=== PATIENT | male | born 1950 | race Caucasian/White ===

== ENCOUNTER → 2018-09-14 11:26 | Outpatient (BNVA) | payer OTHER, MEDICARE, SELFPAY | PROVIDERS: Visit Provider Physical Therapy Assistant | DX: Z12.11 Encounter for screening for malignant neoplasm of colon (principal) ==

== ENCOUNTER 2018-09-29 08:08 | Day surgery (SDC) | payer MEDICARE, OTHER, SELFPAY ==
--- NOTE | 2018-09-29 06:46 | W.COLOREPORT ---
Date of service: 09/29/18 Time of Service: 09:11 Colonoscopy Report Date of procedure: 09/29/18 Pre-op diagnosis general: Colon Cancer Screening Post-op diagnosis procedure note: same Procedure: Colonoscopy Surgeon: Carmen Song Anesthesia proc note operative: MAC (Margaret Jenkins CRNA / ASA 2) Estimated blood loss (mL): 0 Pathology: none sent Complications: None Disposition: same day Indications: Mr. Gong is a pleasant 68 year old male who had a colonoscopy in 2005 that was normal. He is here today for another colonoscopy. Risks, benefits and complications have been reviewed. Complications include but are not limited to bleeding, pain, perforation, missed small lesion/polyp, sore throat, aspiration and adverse reaction to the medications. Questions were entertained and answered to their satisfaction and they wished to proceed. No guarantees were given or implied. Prep: Miralax/Dulcolax Procedure Start Time: 09:11 Procedure End Time: 09:32 Retraction Time: 10 minutes Findings: Normal colon Procedure Description: After informed consent was obtained the patient was taken to the procedure room and placed in a left decubitous position. Monitors were applied and a time out was done. The patients name, date of , procedure, allergies to medications and metal in their body was reviewed. The patient was then sedated. Once sedated and comfortable a rectal exam was done. External exam was normal. Internal exam revealed a normal sphincter tone and no palpable masses. The prostate felt smooth. The scope was then introduced and retro-flexed. NO internal hemorrhoids were identified. There were some skin tags. The scope was then advanced to the cecum with some difficulty due to tortuousity . The TI and appendiceal orifice were identified. The prep was good. The scope was then slowly retracted over 10 minutes back into the rectum. There were no polyps and no diverticuli. The scope was removed and the patient was woken up and taken back to Same day surgery in stable condition. The patient tolerated the procedure well and there were no immediate complications. Follow up: The patient should have another colonoscopy if they develop changes in bowel habits or other new gastrointestinal complaints.
--- NOTE | 2018-09-29 06:49 | W.PM.DSUDISC ---
Discharge Plan Disposition Patient Disposition: HOME Condition: Good Discharge Details Reason For Visit: colon cancer screening Attending Provider: Carmen Song Primary Care Provider: No,Local Home Meds and New Rx's Prescriptions: Continued atorvastatin [Lipitor] 40 MG tablet 40 mg PO DAILY RF: 0 Discharge Instructions Instructions: Colonoscopy (DC) Additional Instructions: Findings: Normal colonoscopy Follow up: as needed Please call if you develop: fevers >101.5 Nausea or Vomiting Abdominal pain that is not transient DAY SURGERY UNIT POST COLONOSCOPY INSTRUCTIONS 1. Because there will be medication in your system for the next 24 hours, you may feel a little sleepy. Your coordination will be affected. Therefore: a. Do not drive or operate dangerous equipment for 24 hours. b. Do not drink alcohol beverages for 24 hours (not even beer). c. Plan to go home and rest for the day. 2. Generally there are no restrictions on your activity after a day or so has gone by, but you may feel a bit fatigued for a few days. 3 After you arrive home you may have a light meal and return to a normal diet as you can tolerate it without feeling sick to your stomach. 4. After surgery, you may feel pain or discomfort. This should be only transient, but if it persists please contact your doctor. 5. If there are any questions regarding the findings of your procedure, please feel free to contact your doctor. 6. If you are unable to contact your doctor with a problem, contact the hospital at [phone]. 7. Continue all your regular medications unless directed otherwise. I understand the above instructions and have no questions. Signature of Patient or Responsible Adult Escort Date/Time Name of Responsible Adult Escort Signature of Nurse Date/Time Activity:: Activity as Tolerated Diet:: As Tolerated Discharge Orders Discharge Orders: Discharge Order (Routine); Ordered 09/29/18 Ordered By: Carmen Song DS: Diagnosis Discharge Diagnosis (1) S/P colonoscopy: Status: Acute
[2018-09-29 08:24] VITALS: BP 148/91; PULSE 70; RESP 18; TEMP 36.5; O2SAT 97
[2018-09-29] MEDS: Lactated Ringers 1,000 ML 80 ML IV (08:34)
[2018-09-29 10:05] VITALS: BP 116/69; PULSE 72; RESP 16; TEMP 35.8; O2SAT 96
== END 2018-09-29 10:40 | disposition home or self-care (01) ==
PROVIDERS: Visit Provider Surgery
PROC: 0DJD8ZZ Inspection of Lower Intestinal Tract, Via Natural or Artificial Opening Endoscopic (ICD-10-PCS; CPT 45378; principal; 2018-09-29 09:00)
DX: Z12.11 Encounter for screening for malignant neoplasm of colon (principal); K63.89 Other specified diseases of intestine
CPT/HCPCS: G0121

== ENCOUNTER 2020-03-15 03:19 | Outpatient (CLI) | payer OTHER, SELFPAY ==
--- NOTE | 2020-03-15 | DI.US_ITS ---
EXAM: US RENAL CLINICAL HISTORY: [id number],INCIDENTAL FINDING OF HYDRONEPHROSIS VS PARAPELVIC CYSTS TECHNIQUE: Ultrasound performed using standard protocol. COMPARISON: No exams were available for comparison FINDINGS: The kidneys are normal in size and shape. No renal mass identified. There appears to be mild to mod erate hydronephrosis of the right kidney. There are 2 parapelvic cysts of the left kidney without hy dronephrosis. Ureteral jets were identified bilaterally. Urinary bladder is grossly unremarkable with pre and post void volumes 397 cc and 11 cc respectively. IMPRESSION: Mild to moderate right hydronephrosis. No specific etiology identified. CT urogram recommended for further assessment. DATA REPOSITORY:
== END 2020-03-15 03:39 ==
PROVIDERS: PCP Nurse Practitioner Primary Care; Visit Provider Nurse Practitioner Primary Care
DX: N13.30 Unspecified hydronephrosis (principal)
CPT/HCPCS: 76770

== ENCOUNTER 2020-03-24 02:31 | Outpatient (CLI) | payer OTHER, SELFPAY ==
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
[2020-03-24 09:20] LABS: BUN 18 mg/dL (7-18); CREATININE 0.79 mg/dL (0.70-1.30)
[2020-03-24] MEDS: Omnipaque 350 MG/ML 100 ML BTL IJ (11:38)
[2020-03-24] MEDS: Normal Saline - Diluent 50 ML VIAL 100 ML IV (11:56)
== END 2020-03-24 02:51 ==
PROVIDERS: PCP Nurse Practitioner Primary Care; Visit Provider Nurse Practitioner Primary Care
DX: N20.0 Calculus of kidney (principal); N28.1 Cyst of kidney, acquired
CPT/HCPCS: 84520; 74178; 82565; J3490

== ENCOUNTER 2020-04-24 16:45 | Emergency (ER) | payer OTHER, SELFPAY ==
[2020-04-24 16:47] VITALS: BP 171/91; PULSE 76; RESP 16; TEMP 35.4; O2SAT 95
--- NOTE | 2020-04-24 16:50 | ED.GENADUL_ITS ---
Discharge Plan Disposition Patient Disposition: HOME Condition: Good Discharge Details Clinical Impression: Ankle sprain Primary Care Provider: Heidi Wells ED Provider: Shandra Ervin Home Meds and New Rx's Prescriptions: Continued atorvastatin [Lipitor] 40 MG tablet 40 mg PO DAILY RF: 0 Discharge Instructions Instructions: Ankle Sprain (ED) Additional Instructions: Encourage rest, ice, elevation. Tylenol and/or ibuprofen as needed for discomfort. You may continue with the brace while pain persists. If pain is not completely resolved in 2 weeks please follow-up with primary care. When he follow-up with your primary care, please discuss your blood pressure as this was noted to be high today. If he develop new or worsening symptoms please seek care urgently once again Referrals: Heidi Wells [Primary Care Provider] - Discharge Data Discharge Date/Time-TO BE ENTERED AT DEPARTURE: 04/24/20 17:45 Medical Decision Making Patient is a pleasant 70-year-old male presenting today with chief complaint of right ankle pain. He reports that he was working on a 6 foot stepladder 3 days ago, indicates being approximately intermediate up when the ladder began to tip. States that he stepped down with his right foot. Denies other injury at the time of the incident. Not strike his head, was conscious. Denies any headache, neck pain, back pain, no nausea or vomiting. States he has been ambulating well without antalgic gait. However, he states he does have medial pain with dorsiflexion of the foot. Indicates the medial aspect of the ankle as area of discomfort. His children saw the ecchymosis that is now wrapping around the heel aspect of the foot and were concerned for potential fracture. On exam, patient is resting comfortably. He Has no pain in the knee or over the proximal fibula. His Achilles tendon is intact. He has no heel pain with lateral squeeze or palpation directly at the base of the heel. He has great range of motion. He does have tenderness over the medial malleolus. Ecchymosis appears to have fallen inferior to this aspect. He does not have pain over the ecchymosis itself. No pain laterally. Normal foot exam with no pain over the proximal fifth metatarsal. Intact capillary refill, 2+ distal pulses, sensation intact. Will obtain x-rays to evaluate medial malleolus FINDINGS: Bones/joints: Normal. Soft tissues: Normal. IMPRESSION: No acute findings. Discussed these findings with the patient. Will splint to help with discomfort. Encouraged RICE. Advised f/u with PCP in 2 weeks if not improving. Discussed return precautions. All questions and concerns were addressed, she is in [facility] with this plan. HPI General Mode of arrival: ambulatory . Date/Time Provider Initiated Documentation: 04/24/20 16:50 . Limitations to Documentation: no limitations . Information obtained by: patient and RN notes reviewed . History of Present Illness 70 year old M presents to the emergency department with the chief complaint of right ankle pain and ecchymosis, described as mild (denies any pain at this time), Quality is described as aching, and is localized to the right and lower extremity. Patient reports no radiation. Patient started experiencing this day(s) (3) and it has been now resolved. Immobilization improves symptom(s), Other factors that worsen symptoms (dorsiflexion of ankle) . Patient notes no other symptoms.. Patient did receive the following treatments prior to arrival, none Related Data Home Medications Medication Instructions Recorded Confirmed atorvastatin [Lipitor] 40 mg PO DAILY 08/31/17 04/25/20 Allergies Allergy/AdvReac Type Severity Reaction Status Date / Time No Known Allergies Allergy Unverified 04/25/20 09:40 Review of Systems Constitutional Constitutional: Reports as per HPI, Denies chills, Denies fever(s), Denies headache(s) and Denies weakness ENT Ears, Nose, Mouth, and Throat: Denies headache(s) Cardiovascular Cardiovascular: Reports as per HPI Respiratory Respiratory: Reports as per HPI and Denies cough Musculoskeletal Musculoskeletal: Reports as per HPI and Denies tingling Integumentary/Breasts Skin/Breast: Reports as per HPI, Denies rash and Denies wounds Neurologic Neurologic: Reports as per HPI, Denies headache(s), Denies tingling, Denies paresthesias and Denies weakness [facility] Medical History Carpal tunnel syndrome Degenerative joint disease Hyperlipidemia Surgical History H/O colonoscopy 05/07/16 - Dr Allen, normal, internal hemorrhoids, repeat 10 years S/P colonoscopy (~09/29/18) Social History Smoking/Tobacco Use Status: Former Tobacco Use Alcohol Intake: never Drug use: Never Substance use type: does not use Do you feel safe in your relationship?: Yes Exam Const General: cooperative, healthy appearing, comfortable, no acute distress, well d eveloped and well groomed Nutritional Appearance: average body habitus and well nourished Orientation: alert and awake Resp Effort & Inspection: normal respiratory effort, able to speak in complete sentences and no respiratory distress Cardio Rate: regular rate Rhythm: regular rhythm Skin General skin exam: ecchymosis (medial and lateral around heel) Neuro General: patient alert and patient awake Cognition: normal cognition Speech: speech normal Gait: normal gait Motor: muscle tone normal throughout Sensory Exam: no sensory deficits noted Extrem Right lower extremity: normal to inspection (ecchymosis noted, otherwise normal), full ROM, normal capillary refill, no joint enlargement, knee (normal, no pain over fibular head/neck), lower leg Details: normal to inspection and no edema; no erythema, no tenderness, no localized swelling, no palpable cords and no ecchymosis, ankle Details: tenderness Location: of the medial malleolus; not of the achilles tendon (normal exam, normal Franco test), no edema, normal ROM and ecchymosis; inspection normal (ecchymosis along inferior aspect of ankle medial > lateral), no swelling, no crepitus and achilles tendon exam normal and foot Details: normal capillary refill, normal to inspection, toes with normal ROM, no edema, vascular exam Details: dorsalis pedis pulse present and normal capillary refill and motor-sensory exam Details: light-touch normal; no tenderne ss; no edema Psych Appearance: grossly normal and well kempt Mental Status: mental status grossly normal Speech and Movement: speech and movement normal
--- NOTE | 2020-04-24 17:13 | DI.RAD_ITS ---
EXAM: XR ANKLE RT COMPLETE CLINICAL HISTORY: medial pain after fall 3 days ago TECHNIQUE: COMPARISON: No exams were available for comparison FINDINGS: Three views were obtained. On the AP and mortise views there is a question of a vertical lucency pro jected through the medial malleolus at the tibiotalar joint. Patient reportedly has medial malleolar tenderness/pain following recent injury. Findings are suspicious for nondisplaced fracture. CT exa mination of the ankle suggested for further evaluation. No additional fracture seen. IMPRESSION: RADIATION DOSE DELIVERED: Total DLP
--- NOTE | 2020-04-24 17:23 | DI.VRAD_ITS ---
PROCEDURE INFORMATION: Exam: XR Right Ankle Exam date and time: 04/24/2020 5:10 PM Age: 70 years old Clinical indication: Other: Medial pain after fall 3 days ago TECHNIQUE: Imaging protocol: XR Right ankle. Views: 3 or more views. COMPARISON: No relevant prior studies available. FINDINGS: Bones/joints: Normal. Soft tissues: Normal. IMPRESSION: No acute findings. Dictated and Authenticated by: Carlo Meneses MD. Ordering:RAAD Devi MD
== END 2020-04-24 17:45 | disposition home or self-care (01) ==
PROVIDERS: Emergency Provider Physician Assistant; PCP Nurse Practitioner Primary Care
DX: S93.402A Sprain of unspecified ligament of left ankle, initial encounter (principal); W11.XXXA Fall on and from ladder, initial encounter; X50.9XXA Other and unspecified overexertion or strenuous movements or postures, initial encounter
CPT/HCPCS: 29515; 99283; 73610; 99284; L1902

== ENCOUNTER 2020-04-25 09:32 | Emergency (ER) | payer OTHER, SELFPAY ==
--- NOTE | 2020-04-25 09:30 | DI.CT_ITS ---
EXAM: CT LOWER EXTREMITY RT WO CLINICAL HISTORY: call back, pain, ? lucency mal TECHNIQUE: COMPARISON: No exams were available for comparison FINDINGS: CT examination of the ankle was performed to evaluate suspected linear lucency identified in medial m alleolus on radiographs of the ankle. The CT confirms a nondisplaced medial malleolar fracture. No additional fracture seen. Fracture plane extends through the articular surface of the medial malleol us at the edge of the talar dome medially. Ankle mortise is well maintained. IMPRESSION: RADIATION DOSE DELIVERED: 196.37mGy.cm Total DLP
[2020-04-25 09:34] VITALS: BP 193/85; PULSE 84; RESP 16; TEMP 36.6; O2SAT 98
--- NOTE | 2020-04-25 09:36 | ED.GENADUL_ITS ---
Discharge Plan Disposition Patient Disposition: HOME Condition: Improving Discharge Details Clinical Impression: Fracture of medial malleolus of right tibia Primary Care Provider: Heidi Wells ED Provider: Hieu Agudelo Home Meds and New Rx's Prescriptions: Continued atorvastatin [Lipitor] 40 MG tablet 40 mg PO DAILY RF: 0 Discharge Instructions Instructions: Ankle Fracture (ED) Additional Instructions: I discussed her case with on-call orthopedics, Dr. Saez. They will see you in the office for follow-up. Please call the office in the next 1 to 2 days for an appointment time. The number is [phone]. You are to be partial weightbearing in the walking boot with the use of crutches. May remove for bathing. Return to the ER for any acute concerns. Medical Decision Making 70-year-old male seen yesterday for right ankle injury with what was initially read as unremarkable x-ray. He was placed in a lace up ankle brace and has been doing well and has been ambulatory. He was called back today due to question of a vertical lucency in the right medial malleolus. He does have bruising and swelling on exam. He is referred for CT scan which does reveal distal tibia/medial malleolus fracture. Discussed with Dr. Saez patient was placed in a walking boot with partial weightbearing. He will follow-up in orthopedics. HPI General Mode of arrival: ambulatory . Date/Time Provider Initiated Documentation: 04/25/20 09:32 . Limitations to Documentation: no limitations . Information obtained by: patient . History of Present Illness 70 year old M presents to the emergency department with the chief complaint of Call back for question fracture right medial malleolus, described as moderate, Quality is described as dull, and is localized to the right and lower extremity. Patient reports no radiation. Patient started experiencing this day(s) and it has been constant. Rest improves symptom(s), Movement worsens symptoms . Patient notes no other symptoms.. Patient did receive the following treatments prior to arrival, other (Improved with lace up ankle brace) Related Data Home Medications Medication Instructions Recorded Confirmed atorvastatin [Lipitor] 40 mg PO DAILY 08/31/17 04/25/20 Allergies Allergy/AdvReac Type Severity Reaction Status Date / Time No Known Allergies Allergy Unverified 04/25/20 09:40 General YUE: 4 Review of Systems Narrative: No other complaints. [facility]LY [facility], [facility] Medical History Carpal tunnel syndrome Degenerative joint disease Hyperlipidemia Surgical History H/O colonoscopy 05/07/16 - Dr Allen, normal, internal hemorrhoids, repeat 10 years S/P colonoscopy (~09/29/18) Social History Smoking/Tobacco Use Status: Former Tobacco Use Alcohol Intake: never Drug use: Never Substance use type: does not use Do you feel safe in your relationship?: Yes Exam Narrative Exam Narrative: GEN: awake, alert, oriented 3. Pleasant, well groomed, interactive. HEAD: Normocephalic, atraumatic EYES: PERRL, EOMI NECK: Full ROm EXT: Full ROM. Right medial malleolus is slightly tender. There is swelling and ecchymosis present medially. Palpable dorsalis pedis present. Sensation intact throughout. Neuro: Grossly normal neurologic exam, conversant, interactive. Psych: Speech fluent, thoughts congruent, affect normal
== END 2020-04-25 11:14 | disposition home or self-care (01) ==
PROVIDERS: Emergency Provider Emergency Medicine; PCP Nurse Practitioner Primary Care
DX: S82.54XA Nondisplaced fracture of medial malleolus of right tibia, initial encounter for closed fracture (principal); W11.XXXA Fall on and from ladder, initial encounter
CPT/HCPCS: 27760; 73700; E0114; L4361

== ENCOUNTER 2020-04-28 10:10 | Outpatient (CLI) | payer MEDICARE, OTHER, SELFPAY | END 2020-04-28 10:30 | PROVIDERS: PCP Nurse Practitioner Primary Care; Referring Provider Nurse Practitioner Primary Care; Visit Provider Student in an Organized Health Care Education/Training Program | DX: S82.54XA Nondisplaced fracture of medial malleolus of right tibia, initial encounter for closed fracture (principal); W11.XXXA Fall on and from ladder, initial encounter | CPT/HCPCS: 99204; 99215 ==

== ENCOUNTER 2020-05-24 15:37 | Outpatient (CLI) | payer MEDICARE, OTHER, SELFPAY ==
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
== END 2020-05-24 15:57 ==
PROVIDERS: PCP Nurse Practitioner Primary Care; Referring Provider Nurse Practitioner Primary Care; Visit Provider Student in an Organized Health Care Education/Training Program
DX: S82.54XD Nondisplaced fracture of medial malleolus of right tibia, subsequent encounter for closed fracture with routine healing; W11.XXXD Fall on and from ladder, subsequent encounter
CPT/HCPCS: 99213; 73610

== ENCOUNTER 2020-06-21 10:05 | Outpatient (CLI) | payer MEDICARE, OTHER, SELFPAY ==
--- NOTE | 2020-06-21 08:15 | DI.RAD_ITS ---
EXAM: XR ANKLE RT COMPLETE CLINICAL HISTORY: Ankle pain. TECHNIQUE: 2D digital imaging was performed. COMPARISON: CR XR ANKLE RT COMPLETE from 05/24/2020 FINDINGS: BONES: There has been no change in alignment of the nondisplaced medial malleolar fracture since 05/11. No new fracture is identified. No bony destructive lesion is seen. JOINTS: The ankle mortise is normally aligned. No dislocation. SOFT TISSUE: Normal. IMPRESSION: Stable nondisplaced medial malleolar fracture. DATA REPOSITORY: RADIATION DOSE DELIVERED:
== END 2020-06-21 10:25 ==
PROVIDERS: PCP Nurse Practitioner Primary Care; Referring Provider Nurse Practitioner Primary Care; Visit Provider Student in an Organized Health Care Education/Training Program
DX: S82.54XA Nondisplaced fracture of medial malleolus of right tibia, initial encounter for closed fracture (principal); S82.54XD Nondisplaced fracture of medial malleolus of right tibia, subsequent encounter for closed fracture with routine healing; X58.XXXD Exposure to other specified factors, subsequent encounter
CPT/HCPCS: 99213; 73610

== ENCOUNTER 2021-10-17 11:00 | Emergency (ER) | payer MEDICARE, OTHER, SELFPAY ==
[2021-10-17 11:04] VITALS: BP 206/87; PULSE 80; RESP 16; TEMP 36.6; O2SAT 97
--- NOTE | 2021-10-17 11:15 | DI.CT_ITS ---
Exam(s) CT RENAL COLIC WO EXAM: CT RENAL COLIC WO INDICATION: left flank pain. COMPARISON: CT CT ABDOMEN PELVIS WO/W from 03/24/2020 TECHNIQUE: CT examination was performed without contrast administration. FINDINGS: Images obtained through the lung bases are unremarkable. Visualized portions of the liver and splee n appear intact. Visualized portions of the pancreas are unremarkable. Gallbladder and bile ducts are CT normal. Abdominal aorta is of normal diameter. No significant abdominal wall hernia. No significant abdominal or pelvic adenopathy. Adrenals appear normal bilaterally. A the examination is compared with prior CT urogram of March 2020. There are multiple bilateral par apelvic renal cysts. There is been no change in appearance of the right kidney since that time. The re are tiny nonobstructing right renal stones. There is no right ureteral lithiasis or hydronephrosi s. On the left there is perinephric fat stranding. There is hydronephrosis and hydroureter to the level of the ureterovesical junction where there is an obstructing intramural 3-4 millimeter in diameter s tone. Urinary bladder shows apparent mild wall thickening, this is nonspecific and may represent chr onic bladder outlet obstruction, please correlate clinically. No intrarenal stones noted on the left. There are multiple left parapelvic renal cysts period IMPRESSION: There is an obstructing 3-4 millimeter in diameter stone at the ureterovesical junction on the left w ith associated moderate left hydronephrosis and hydroureter. Nonobstructing right renal calculi are also noted. Note is also made of bilateral parapelvic renal c ysts period RADIATION DOSE DELIVERED: 517.73mGy.cm DLP 517.73mGy.cm Total DLP !Error CTDIvol RADIATION OPTIMIZATION: All CT scans at this facility use at least one of these dose optimization te chniques: automated exposure control; mA and/or kV adjustment per patient size (includes targeted exa ms where dose is matched to clinical indication); or iterative reconstruction.
[2021-10-17 11:17] LABS: Bilirubin Negative (Negative); Blood Moderate (Negative); Clarity Clear (Clear); Glucose Negative (Negative); Ketones 15 mg/dL (Negative); Leukocyte Esterase Negative (Negative); Nitrite Negative (Negative); Specific Gravity 1.025 (1.005-1.025); Urobilinogen 0.2 EU/dL (Up TO 0.2)
[2021-10-17 11:23] LABS: Bacteria Rare HPF (Negative); C & S Indicated? No; Casts Negative LPF (Negative); Crystals Negative HPF (Negative); Epithelial Cells Few HPF (Negative); Mucus Moderate (Negative); WBC 0-2 HPF (0-5)
--- NOTE | 2021-10-17 11:25 | ED.GENADUL_ITS ---
Discharge Plan Disposition Patient Disposition: HOME Condition: Good Discharge Details Clinical Impression: Ureterolithiasis, Anemia, Acute kidney injury Primary Care Provider: Heidi Wells ED Provider: Marion Mackey Home Meds and New Rx's Prescriptions: Continued atorvastatin [Lipitor] 40 MG tablet 40 mg PO DAILY 0RF Discontinued ibuprofen 600 mg tablet 600 mg PO Q6H PRN0RF No Action sildenafil 50 mg tablet 50 mg PO DAILY PRN0RF Rx Instructions: administer 30 minutes to 4 hours before activity ibuprofen 600 mg tablet 600 mg PO Q8H PRN0RF Discharge Instructions Instructions: Anemia (ED), Impaired Kidney Function (ED), Ureteral Stones (ED) Additional Instructions: Please return immediately to the emergency department if you develop any new or worsening symptoms, if your condition does not improve as expected, or if you become otherwise concerned. It is extremely important that you call soon as possible to make an appointment to be seen in follow-up for this visit by your primary care doctor. It is also extremely important that you are seen by urology within 48 hours to follow-up. If you are unable to see urology in follow-up within 48 hours, please present to the emergency department for reevaluation. Please do not take NSAID or aspirin until cleared to do so by your primary care doctor, this includes no Advil, Aleve, or Motrin. You may take Tylenol for pain as we discussed. Referrals: Riccardo Cabrera MD [ [facility] STAFF PHYSICIAN] - Heidi Wells [Primary Care Provider] - Discharge Data Discharge Date/Time-TO BE ENTERED AT DEPARTURE: 10/17/21 16:39 Medical Decision Making Ambrocio Gong is a 71-year-old man with history of hyperlipidemia, kidney stones presenting to emergency department with left-sided flank pain. Patient reports that pain has been waxing and waning since onset. Patient reports that he has had kidney stones several times in the past, pain usually lasts for a day or 2 and resolves on its own. Patient reports that patient has had left-sided flank pain for 3 days, same in location/quality/severity as prior kidney stone, however pain has not resolved as it typically does. Patient reports that pain has been controlled at home with ibuprofen, last took ibuprofen approximately 2 hours ago, rates pain is mild and tolerable. He denies any other pain, dysuria, fever, cough, shortness of breath, diarrhea, constipation, numbness, weakness. Patient reports that he has had nausea and vomiting at times when pain has been more severe. He states that he feels otherwise well and in his usual state of health. On exam patient is very well and nontoxic-appearing. Blood pressure is elevated at 206/87, vital signs otherwise normal. There is no abdominal or CVA tenderness to palpation. Concern for likely ureterolithiasis vs UTI vs other. Exam/hx at this time is not c/w hypertensive emergency, acute aortic pathology, sepsis, appendicitis, testicular etiology, ACS. Plan for IV placement, IV fluid hydration, screening labs, CT renal. Patient declines pain medication and nausea medication at this time. CT shows 2-3 mm at left UVJ with hydronephrosis. UA not c/w UTI. Labs reviewed, Hgb 13, Cr 1.6. BP decreased. Unclear etiology of elevated Cr, likely 2/2 NSAID use. Plan for repeat after fluids. Cr 1.5, not rising. Pt reports that he feels well and pain is manageable. I discussed Pt with Danielle Santos of urology, who [facility] to see Pt as outpt. I had a lengthy discussion with the Pt re: his imaging and lab results and importance of outpt f/u for re-check and cessation of all NSAIDs. Pt is amenable to the plan, states that he believes his pain will be managed well at home with tylenol and declines opiates. Pt placed on care management list for outpt f/u. I had a discussion with Patient regarding return to emergency department precautions, home care, and importance of outpatient follow-up. Pt verbalizes understanding of the plan and is amenable. Patient discharged to home with clear plan for outpatient follow-up. All questions were answered. Disposition decision was made weighing the risks and benefits of hospitalization versus outpatient treatment, the risk for further decompensation, and the patient's wishes. Imaging Data Radiologic Study: Attestation: I personally reviewed and interpreted this imaging study as follows: Radiologist's impression: EXAM:? CT RENAL COLIC WO INDICATION:? left flank pain. COMPARISON:? CT CT ABDOMEN ? PELVIS WO/W from 03/24/2020 TECHNIQUE:? CT examination was performed without contrast administration. FINDINGS: ?Images obtained through the lung bases are unremarkable.? Visualized portions of the liver and spleen appear intact. Visualized portions of the pancreas are unremarkable. Gallbladder and bile ducts are CT normal. Abdominal aorta is of normal diameter. No significant abdominal wall hernia.? No significant abdominal or pelvic adenopathy. Adrenals appear normal bilaterally. A the examination is compared with prior CT urogram of March 2020.? There are multiple bilateral parapelvic renal cysts.? There is been no change in appearance of the right kidney since that time.? There are tiny nonobstructing right renal stones.? There is no right ureteral lithiasis or hydronephrosis. On the left there is perinephric fat stranding.? There is hydronephrosis and hydroureter to the level of the ureterovesical junction where there is an obstructing intramural 3-4 millimeter in diameter stone.? Urinary bladder shows apparent mild wall thickening, this is nonspecific and may represent chronic bladder outlet obstruction, please correlate clinically. No intrarenal stones noted on the left.? There are multiple left parapelvic renal cysts period IMPRESSION: There is an obstructing 3-4 millimeter in diameter stone at the ureterovesical junction on the left with associated moderate left hydronephrosis and hydroureter. Nonobstructing right renal calculi are also noted.? Note is also made of bilateral parapelvic renal cysts period Lab Data Labs: Laboratory Tests Range/Units 10/17/21 10/17/21 10/17/21 11:04 11:10 11:10 WBC (4.4-10.8) 10^3/uL 9.79 RBC (4.36-5.78) 10^6/uL 4.42 Hgb (13.5-17.5) g/dL 13.0 L Hct (40.0-50.0) % 40.4 MCV (80-95) fL 91.4 MCH (27.0-33.0) pg 29.4 MCHC (32.0-36.0) % 32.2 RDW (11.8-14.1) % 12.9 Plt Count (130-400) 10^3/uL 231 MPV (8.0-11.0) fL 9.7 Immature Gran % 0.5 Neutrophils % 72.3 Lymphocytes % 14.0 Monocytes % 10.2 Eosinophils % 2.3 Basophils % 0.7 Nucleated RBC % % 0 Absolute Neutrophils (1.2-6.7) 10^3/uL 7.07 H Absolute Lymphocytes (1.2-3.4) 10^3/uL 1.37 Absolute Monocytes (0.1-0.8) 10^3/uL 1.00 H Absolute Eosinophils (0.0-0.7) 10^3/uL 0.23 Absolute Basophils (0.0-0.2) 10^3/uL 0.07 Sodium (136-145) mmol/L 139 Potassium (3.5-5.1) mmol/L 3.4 L Chloride (98-107) mmol/L 101 Carbon Dioxide (21.0-32.0) mmol/L 24.0 Anion Gap (3-11) mmol/L 14.0 H BUN (7-18) mg/dL 17 Creatinine (0.70-1.30) mg/dL 1.6 H Estimated GFR/1.73 m2 (mL/min/1.73m2) 42.58 Glucose (74-106) mg/dL 88 Calcium (8.5-10.1) mg/dL 8.5 Total Bilirubin (0.2-1.0) mg/dL 0.7 AST (15-37) U/L 31 ALT (16-63) U/L 29 Alkaline Phosphatase (46-116) U/L 92 Total Protein (6.4-8.2) g/dL 7.8 Albumin (3.4-5.0) g/dL 3.5 Urine Color (Yellow) Yellow Urine Clarity (Clear) Clear Urine pH (5-8) 6.0 Ur Specific [place] (1.005-1.025) 1.025 Urine Protein (Negative) mg/dL Negative Urine Ketones (Negative) mg/dL 15 H Urine Blood (Negative) Moderate H Urine Nitrite (Negative) Negative Urine Bilirubin (Negative) Negative Urine Urobilinogen (Up TO 0.2) EU/dL 0.2 Ur Leukocyte Esterase (Negative) Negative Urine RBC (0-2) HPF 10-20 H Urine WBC (0-5) HPF 0-2 Ur Epithelial Cells (Negative) HPF Few Urine Crystals (Negative) HPF Negative Urine Bacteria (Negative) HPF Rare Urine Casts (Negative) LPF Negative Urine Mucus (Negative) Moderate Ur Culture Indicated? No Urine Glucose (Negative) mg/dL Negative Range/Units 10/17/21 10/17/21 14:15 14:45 WBC (4.4-10.8) 10^3/uL RBC (4.36-5.78) 10^6/uL Hgb (13.5-17.5) g/dL Hct (40.0-50.0) % MCV (80-95) fL MCH (27.0-33.0) pg MCHC (32.0-36.0) % RDW (11.8-14.1) % Plt Count (130-400) 10^3/uL MPV (8.0-11.0) fL Immature Gran % Neutrophils % Lymphocytes % Monocytes % Eosinophils % Basophils % Nucleated RBC % % Absolute Neutrophils (1.2-6.7) 10^3/uL Absolute Lymphocytes (1.2-3.4) 10^3/uL Absolute Monocytes (0.1-0.8) 10^3/uL Absolute Eosinophils (0.0-0.7) 10^3/uL Absolute Basophils (0.0-0.2) 10^3/uL Sodium (136-145) mmol/L Cancelled 141 Potassium (3.5-5.1) mmol/L Cancelled 3.7 Chloride (98-107) mmol/L Cancelled 107 Carbon Dioxide (21.0-32.0) mmol/L Cancelled 20.9 L Anion Gap (3-11) mmol/L Cancelled 13.1 H BUN (7-18) mg/dL Cancelled 16 Creatinine (0.70-1.30) mg/dL Cancelled 1.5 H Estimated GFR/1.73 m2 (mL/min/1.73m2) Cancelled 45.87 Glucose (74-106) mg/dL Cancelled 81 Calcium (8.5-10.1) mg/dL Cancelled 8.0 L Total Bilirubin (0.2-1.0) mg/dL AST (15-37) U/L ALT (16-63) U/L Alkaline Phosphatase (46-116) U/L Total Protein (6.4-8.2) g/dL Albumin (3.4-5.0) g/dL Urine Color (Yellow) Urine Clarity (Clear) Urine pH (5-8) Ur Specific [place] (1.005-1.025) Urine Protein (Negative) mg/dL Urine Ketones (Negative) mg/dL Urine Blood (Negative) Urine Nitrite (Negative) Urine Bilirubin (Negative) Urine Urobilinogen (Up TO 0.2) EU/dL Ur Leukocyte Esterase (Negative) Urine RBC (0-2) HPF Urine WBC (0-5) HPF Ur Epithelial Cells (Negative) HPF Urine Crystals (Negative) HPF Urine Bacteria (Negative) HPF Urine Casts (Negative) LPF Urine Mucus (Negative) Ur Culture Indicated? Urine Glucose (Negative) mg/dL HPI General Date/Time Provider Initiated Documentation: 10/17/21 11:00 . Limitations to Documentation: no limitations . Information obtained by: patient, RN notes reviewed and old records reviewed . HPI Narrative: Ambrocio Gong is a 71-year-old man with history of hyperlipidemia, kidney stones presenting to emergency department with left-sided flank pain. Patient reports that pain has been waxing and waning since onset. Patient reports that he has had kidney stones several times in the past, pain usually lasts for a day or 2 and resolves on its own. Patient reports that patient has had left-sided flank pain for 3 days, same in location/quality/severity as prior kidney stone, however pain has not resolved as it typically does. Patient reports that pain has been controlled at home with ibuprofen, last took ibuprofen approximately 2 hours ago, rates pain is mild and tolerable. He denies any other pain, dysuria, fever, cough, shortness of breath, diarrhea, constipation, numbness, weakness. Patient reports that he has had nausea and vomiting at times when pain has been more severe. He states that he feels otherwise well and in his usual state of health. Related Data Home Medications Medication Instructions Recorded Confirmed atorvastatin 40 mg tablet (Lipitor) 40 mg PO DAILY 08/31/17 10/23/21 ibuprofen 600 mg tablet 600 mg PO Q8H PRN 10/23/21 10/23/21 sildenafil 50 mg tablet 50 mg PO DAILY PRN 10/23/21 10/23/21 Allergies Allergy/AdvReac Type Severity Reaction Status Date / Time No Known Allergies Allergy Verified 10/23/21 14:57 General Stated Complaint: FlankPain YUE: 3 Review of Systems Narrative: Constitutional: denies fevers Eyes: denies eye pain ENT: denies ear pain, dental pain, sore throat Cardiovascular: denies chest pain Respiratory: denies SOB, cough GI: denies abdominal pain, diarrhea, reports vomiting : denies dysuria, testicular pain, reports left-sided flank pain MSK: denies back pain, neck pain, arthralgias, myalgias Skin: denies rash Neuro: denies headaches, numbness, weakness PFSH All Active Problems (Updated 10/17/21 @ 16:11 by Marion Mackey MD) Anemia (Chronic) Ureterolithiasis (Acute) Acute kidney injury (Acute) Fracture of medial malleolus of right tibia (Acute) S/P colonoscopy (Acute ~09/29/18) Encounter for screening colonoscopy (Acute) Medical History Carpal tunnel syndrome Degenerative joint disease Hyperlipidemia Surgical History H/O colonoscopy 05/07/16 - Dr Allen, normal, internal hemorrhoids, repeat 10 years S/P colonoscopy (~09/29/18) Social History Smoking/Tobacco Use Status: Former Tobacco Use Smoking risk assessment performed?: Yes Alcohol Intake: former Drug use: Never Substance use type: does not use Current gender identity: male Do you feel safe at home: Yes Do you feel safe in your relationship?: Yes Exam Narrative Exam Narrative: Constitutional: well and [id number]-[id number], pleasant, conversing normally HENT: head atraumatic/normocephalic/normal inspection, mucous membranes moist Eyes: conjunctiva normal, sclera normal, pupils 3mm b/l Neck: no stridor, normal ROM, trachea midline Resp: normal work of breathing, LCTAB Cardio: normal rate, normal rhythm, no murmur appreciated GI: abdomen soft, non-tender, non-distended, patient points to left CVA as area of pain, no CVA tenderness to palpation bilaterally, no overlying skin changes Back: normal inspection, no rash Skin: warm, dry, normal color, no rash Neuro: alert, not altered, grossly non-focal, normal tone Ext: no edema, no posterior calf tenderness to palpation Psych: normal mood, normal affect, normal behavior Course Vital Signs Vital signs: Vital Signs Temperature 36.6 C 10/17/21 11:04 Pulse 80 10/17/21 11:04 Respiratory Rate 16 10/17/21 11:04 Blood Pressure 206/87 H 10/17/21 11:04 Pulse Oximetry 97 10/17/21 11:04 Temperature 36.6 C 10/17/21 11:04 Temperature Source Temporal Artery Scan 10/17/21 11:04 Pulse 80 10/17/21 11:04 Respiratory Rate 16 10/17/21 11:04 Respiratory Effort Non-Labored 10/17/21 11:07 Blood Pressure 206/87 H 10/17/21 11:04 Blood Pressure Position Sitting 10/17/21 11:04 Pulse Oximetry 97 10/17/21 11:04 Oxygen Delivery Method Room Air 10/17/21 11:04 Oxygen Flow Rate 0 10/17/21 11:04 Pain Level 3 10/17/21 11:11 Lab/Test Results Lab/Test Results: Laboratory Tests Range/Units 10/17/21 11:04 Urine Color (Yellow) Yellow Urine Clarity (Clear) Clear Urine pH (5-8) 6.0 Ur Specific [place] (1.005-1.025) 1.025 Urine Protein (Negative) mg/dL Negative Urine Ketones (Negative) mg/dL 15 H Urine Blood (Negative) Moderate H Urine Nitrite (Negative) Negative Urine Bilirubin (Negative) Negative Urine Urobilinogen (Up TO 0.2) EU/dL 0.2 Ur Leukocyte Esterase (Negative) Negative Urine RBC (0-2) HPF 10-20 H Urine WBC (0-5) HPF 0-2 Ur Epithelial Cells (Negative) HPF Few Urine Crystals (Negative) HPF Negative Urine Bacteria (Negative) HPF Rare Urine Casts (Negative) LPF Negative Urine Mucus (Negative) Moderate Ur Culture Indicated? No Urine Glucose (Negative) mg/dL Negative
[2021-10-17 11:37] LABS: Abs Immature Grans 0.05 10^3/uL (0.0-0.06); Absolute Basophil Count 0.07 10^3/uL (0.0-0.2); Absolute Eosinophil Count 0.23 10^3/uL (0.0-0.7); Absolute Lymphocyte Count 1.37 10^3/uL (1.2-3.4); Absolute Neutrophil Count 7.07 10^3/uL (1.2-6.7); Basophils % 0.7; Eosinophils % 2.3; HCT 40.4 % (40.0-50.0); Immature Grans % 0.5; MCH 29.4 pg (27.0-33.0); MCHC 32.2 % (32.0-36.0); MCV 91.4 fL (80-95); MPV 9.7 fL (8.0-11.0); Monocytes % 10.2; Neutrophils % 72.3; Nucleated RBC 0 %; Platelet Count 231 10^3/uL (130-400); RBC 4.42 10^6/uL (4.36-5.78); RDW 12.9 % (11.8-14.1); RDW-SD 43.3 fL; WBC 9.79 10^3/uL (4.4-10.8)
[2021-10-17] MEDS: Normal Saline 1,000 ML 1000 ML IV (11:40)
[2021-10-17 11:55] LABS: ALT 29 U/L (16-63); AST 31 U/L (15-37); Albumin 3.5 g/dL (3.4-5.0); Alkaline Phosphatase 92 U/L (46-116); BUN 17 mg/dL (7-18); Bilirubin, Total 0.7 mg/dL (0.2-1.0); CREATININE 1.6 mg/dL (0.70-1.30); Calcium 8.5 mg/dL (8.5-10.1); Chloride 101 mmol/L (98-107); Estimated GFR 42.58 (mL/min/1.73m2); Glucose 88 mg/dL (74-106); Potassium 3.4 mmol/L (3.5-5.1); Sodium 139 mmol/L (136-145); Total Protein 7.8 g/dL (6.4-8.2)
[2021-10-17 12:14] VITALS: BP 151/76; PULSE 66; RESP 18; O2SAT 100
[2021-10-17] MEDS: Normal Saline 500 ML IV (13:35)
[2021-10-17] MEDS: Ketorolac 15 MG/ML VIAL (13:35)
[2021-10-17 14:58] LABS: Anion Gap 13.1 mmol/L (3-11); BUN 16 mg/dL (7-18); CO2 20.9 mmol/L (21.0-32.0); CREATININE 1.5 mg/dL (0.70-1.30); Chloride 107 mmol/L (98-107); Estimated GFR 45.87 (mL/min/1.73m2); Glucose 81 mg/dL (74-106); Potassium 3.7 mmol/L (3.5-5.1); Sodium 141 mmol/L (136-145)
--- NOTE | 2021-10-17 16:07 | NUR.NOTE ---
Nursing Note: PT INFO FAXED TO UROLOGY FOR PT TO BE SEEN IN 48 HOURS FOR KIDNEY INJURY AND KIDNEY STONE. FABRICIO, ED
== END 2021-10-17 16:39 | disposition home or self-care (01) ==
PROVIDERS: Emergency Provider Student in an Organized Health Care Education/Training Program; PCP Nurse Practitioner Primary Care
DX: N13.2 Hydronephrosis with renal and ureteral calculous obstruction (principal); D64.9 Anemia, unspecified; N17.9 Acute kidney failure, unspecified
CPT/HCPCS: 36415; 80048; 80053; 96361; 96374; 99284; 74176; 81003; 81015; 85025; J1885

== ENCOUNTER → 2021-10-23 14:51 | Outpatient (BNVA) | payer MEDICARE, OTHER, SELFPAY | PROVIDERS: PCP Nurse Practitioner Primary Care; Referring Provider Nurse Practitioner Primary Care; Visit Provider Urology | DX: N20.0 Calculus of kidney (principal); N20.1 Calculus of ureter | CPT/HCPCS: 99215 ==

== ENCOUNTER 2021-10-23 17:59 | Outpatient (REF) | payer MEDICARE, OTHER, SELFPAY ==
[2021-10-27 15:46] LABS: Source: Passed Stone
== END 2021-10-23 18:00 | disposition home or self-care (01) ==
LOC: LBN 17:59
PROVIDERS: PCP Nurse Practitioner Primary Care; Visit Provider Urology
DX: N20.0 Calculus of kidney (principal)
CPT/HCPCS: 82365

== ENCOUNTER 2022-03-13 11:06 | Inpatient (IN) | payer MEDICARE, OTHER, SELFPAY ==
[2022-03-13] VITALS (37 sets, daily range): BP systolic 124–183; BP diastolic 57–94; PULSE 57–75; RESP 10–20; TEMP 35.9–37; O2SAT 94–100; BMI 21.4
--- NOTE | 2022-03-13 | DI.CT_ITS ---
Exam(s) CT LOWER EXTREMITY RT WO EXAM: CT LOWER EXTREMITY RT WO CLINICAL HISTORY: Right distal tib/fib fxs. TECHNIQUE: Imaging Protocol: Axial computed tomography images with coronal and sagittal reformatted images were created and reviewed. CONTRAST MATERIAL: Noncontrast COMPARISON: CT CT LOWER EXTREMITY RT WO from 04/25/2020 CR XR ANKLE RT COMPLETE from 06/21/2020 CR,XR XR ANKLE RT COMPLETE from 03/13/2022 FINDINGS: The field of view includes the distal half of of the leg through the foot. A splint is in place. There is a comminuted fracture of the distal 3rd of the tibia to the metaphyse al region. There is no involvement of the articular surface. There is some displacement and no sign ificant angulation. The fibula is fractured and mildly displaced and shows a tiny comminuted fragmen t. The talar dome is intact. The ankle mortise is not widened. There are mild degenerative changes of the medial tibial talar joint. There was a previous fracture through the medial malleolus seen o n the prior exam. There is a small bony fragment seen lateral to the talus which could represent an avulsion fracture. This was not seen on the prior exam. It could also represent ligamentous calcifi cation. There is a minimally displaced spiral fracture of the 2nd metatarsal. There remaining metatarsals ap pear intact. There also mildly displaced fractures of the 4th and 5th proximal phalanges, the middle phalanx of the 4th toe in the distal phalanges the 4th and 5th toes. There is a small fracture at t he lateral corner of the base of the 3rd proximal phalanx. IMPRESSION: Comminuted fracture of the distal tibia without extension to the articular surface. Mildly displaced fibular fracture. Question avulsion of the lateral talus versus ligamentous calcification. Multipl e phalangeal fractures. Second metatarsal fracture. RADIATION DOSE DELIVERED: 347.31mGy.cm Total DLP DATA REPOSITORY: All CT scans at this facility are submitted to the National Radiology Data Registry (NRDR) Dose Index Registry (DIR) with the [employer] (ACR). RADIATION OPTIMIZATION: All CT scans at this facility use at least one of these dose optimization te chniques: automated exposure control; mA and/or kV adjustment per patient size (includes targeted exa ms where dose is matched to clinical indication); or iterative reconstruction.
--- NOTE | 2022-03-13 10:45 | RT.EKG_ITS ---
APPROVED REPORT Exam: Resting ECG Reason for Exam: preop Patient Location: E HR:55 bpm ECG Measurements Heart Rate 55 AXIS DE 155 P 70 QRSd 112 QRS 60 QT 419 T 54 QTc 400 Conclusion Sinus bradycardia...rate< 60
[2022-03-13 11:19] LABS: Source Nasal/Nares
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
[2022-03-13] MEDS: Normal Saline 1,000 ML 1000 ML IV (11:27)
[2022-03-13 11:31] LABS: Abs Immature Grans 0.03 10^3/uL (0.0-0.06); Absolute Basophil Count 0.06 10^3/uL (0.0-0.2); Absolute Eosinophil Count 0.26 10^3/uL (0.0-0.7); Absolute Lymphocyte Count 2.93 10^3/uL (1.2-3.4); Absolute Neutrophil Count 3.85 10^3/uL (1.2-6.7); Basophils % 0.8; Eosinophils % 3.3; HCT 37.9 % (40.0-50.0); HGB 12.4 g/dL (13.5-17.5); Immature Grans % 0.4; Lymphocytes % 37.4; MCH 29.1 pg (27.0-33.0); MCHC 32.7 % (32.0-36.0); MCV 89 fL (80-95); Monocytes % 8.9; Neutrophils % 49.2; RBC 4.26 10^6/uL (4.36-5.78); RDW 12.7 % (11.8-14.1); RDW-SD 41.8 fL; WBC 7.83 10^3/uL (4.4-10.8)
[2022-03-13 11:43] LABS: PTT Activated 18.2 sec (21.0-27.5); Prothrombin Time 10.3 sec (9.3-11.0)
[2022-03-13 11:48] LABS: ALT 15 U/L (16-63); AST 22 U/L (15-37); Alkaline Phosphatase 87 U/L (46-116); Anion Gap 7.4 mmol/L (3-11); BUN 15 mg/dL (7-18); Bilirubin, Total 0.4 mg/dL (0.2-1.0); CO2 24.6 mmol/L (21.0-32.0); CREATININE 0.8 mg/dL (0.70-1.30); Calcium 7.3 mg/dL (8.5-10.1); Chloride 107 mmol/L (98-107); Diff Comment Diff Reviewed; Glucose 97 mg/dL (74-106); Magnesium 1.4 mg/dL (1.8-2.4); RBC Morphology Normal; Sodium 139 mmol/L (136-145); Troponin I < 50 ng/L (<or=60)
[2022-03-13 11:50] LABS: Potassium 2.8 mmol/L (3.5-5.1)
--- NOTE | 2022-03-13 12:10 | DI.RAD_ITS ---
Exam(s) XR FEMUR RT XR HIP RT COMPLETE AP PELVIS EXAM: XR HIP RT COMPLETE AP PELVIS INDICATION: pain, ?fracture. COMPARISON: CR XR HIP RT COMPLETE AP PELVIS from 03/13/2022 CR XR FEMUR RT from 03/13/2022 TECHNIQUE: 2D digital imaging was performed. Five views. FINDINGS: There is a fracture of the proximal right femur, below the level of the trochanters extending oblique ly. There is severe displacement and angulation. There is also foreshortening. No additional fract ures are seen. The hip joint spaces are well maintained. IMPRESSION: Subtrochanteric fracture of the right femur. DATA REPOSITORY: RADIATION DOSE DELIVERED:
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
[2022-03-13 12:12] LABS: COVID-19 PCR Negative (Negative)
[2022-03-13] MEDS: Potassium Chloride 20 MEQ TABCR 40 MEQ PO (12:19)
[2022-03-13] MEDS: POTASSIUM CHLORIDE 10 MEQ/100 ML BAG 100 MEQ IVPB (12:20)
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
--- NOTE | 2022-03-13 13:06 | ANES.PREOP_ITS ---
General Info Date of Service Date Performed: 03/13/22 Height: 5 ft 9 in Weight: 65.8 kg Body Mass Index (BMI): 21.4 Surgical Procedure: Operation Date: 03/13/22 16:30 Proposed Procedure Side Surgeon nela Hip ANISH Carlson MD Meds Allergies and Home Medications Allergies Allergy/AdvReac Type Severity Reaction Status Date / Time No Known Allergies Allergy Verified 10/23/21 14:57 Home Medication Medication Instructions Recorded atorvastatin 40 mg tablet (Lipitor) 40 mg PO DAILY 08/31/17 ibuprofen 600 mg tablet 600 mg PO Q8H PRN 10/23/21 sildenafil 50 mg tablet 50 mg PO DAILY PRN 10/23/21 Current Visit Medications: Current Medications Generic Name Dose Route Start Last Admin Trade Name Freq PRN Reason Stop Dose Admin Al Hydrox/Mg Hydrox/Simethicone 30 ml 03/13/22 12:19 Mylanta Suspension 30 Ml Cup PO Q2H PRN PRN Dimethicone/Zinc Oxide 0 gm 03/13/22 12:19 Russ Protect Cream 142 Gm Tube TP PRN PRN Docusate Sodium 100 mg 03/13/22 12:19 Docusate Sodium 100 Mg Cap PO TID PRN PRN Magnesium Sulfate 2 gm in 50 mls @ 25 mls/hr 03/13/22 11:54 IVPB 03/13/22 13:53 NOW ONE Sodium Chloride 500 mls @ 0 mls/hr 03/13/22 12:19 Saline 500ml Bag IV PRN PRN As Directed Ringer's Solution 1,000 mls @ 100 mls/hr 03/13/22 12:30 IV INFUSION PRASHANT Acetaminophen 1,000 mg in 100 mls @ 400 mls/hr 03/13/22 12:30 Ofirmev IVPB Q8H PRASHANT IV Miscellaneous Supplies 1 each 03/13/22 11:00 Iv Access IV DIRECTED PRASHANT IV Miscellaneous Supplies 1 each 03/13/22 12:30 Iv Access IV DIRECTED PRASHANT Magnesium Hydroxide 30 ml 03/13/22 12:19 Milk Of Magnesia 30 Ml Cup PO DAILY PRN PRN Morphine Sulfate 2 mg 03/13/22 12:25 Morphine 10 Mg/Ml Vial IVP Q2H PRN PRN Sodium Chloride 0 ml 03/13/22 10:57 Normal Saline Flush 10 Ml Syr IVP PRN PRN Sodium Chloride 0 ml 03/13/22 12:19 Normal Saline Flush 10 Ml Syr IVP PRN PRN PFSH Active Problems Active Problems: Problem Status Onset Code Displaced intertrochanteric fracture of right femur, initial encounter for closed fracture S72.141A Displaced intertrochanteric fracture of right femur, initial encounter for closed fracture 03/13/22 S72.141A Fracture of medial malleolus of right tibia S82.51XA S/P colonoscopy ~09/29/18 Z98.890 Encounter for screening colonoscopy Z12.11 H/O colonoscopy Z98.890 Medical History Medical History Carpal tunnel syndrome Degenerative joint disease Hyperlipidemia Surgical History Surgical History H/O colonoscopy 05/07/16 - Dr Allen, normal, internal hemorrhoids, repeat 10 years S/P colonoscopy (~09/29/18) Tobacco Smoking/Tobacco Use Status: Former Tobacco Use Alcohol Alcohol Intake: former Substance Use Substance use: Never Substance use type: does not use Vital Signs and Lab Results Vital Signs Most Recent Vital Signs in EMR: Most Recent Vital Signs Temp Pulse Resp BP Pulse Ox 37.0 C 57 L 13 168/73 H 97 03/13/22 11:04 03/13/22 11:15 03/13/22 11:26 03/13/22 11:15 03/13/22 11:26 Lab Results Result Diagrams: 03/13/22 11:25 03/13/22 11:25 Blood Type / Crossmatch: No Data to Display Complete Blood Count: White Blood Count 7.83 10^3/uL (4.4-10.8) 03/13/22 11:25 Red Blood Count 4.26 10^6/uL (4.36-5.78) L 03/13/22 11:25 Hemoglobin 12.4 g/dL (13.5-17.5) L 03/13/22 11:25 Hematocrit 37.9 % (40.0-50.0) L 03/13/22 11:25 Platelet Count 10^3/uL (130-400) 03/13/22 11:25 Complete Metabolic Panel: Sodium Level 139 mmol/L (136-145) 03/13/22 11:25 Potassium Level 2.8 mmol/L (3.5-5.1) L* 03/13/22 11:25 Chloride Level 107 mmol/L (98-107) 03/13/22 11:25 Carbon Dioxide Level 24.6 mmol/L (21.0-32.0) 03/13/22 11:25 Blood Urea Nitrogen 15 mg/dL (7-18) 03/13/22 11:25 Creatinine 0.8 mg/dL (0.70-1.30) 03/13/22 11:25 Estimated GFR/1.73 m2 >= 60.00 (mL/min/1.73m2) 03/13/22 11:25 Magnesium Level 1.4 mg/dL (1.8-2.4) L 03/13/22 11:25 Calcium Level 7.3 mg/dL (8.5-10.1) L 03/13/22 11:25 Albumin 3.0 g/dL (3.4-5.0) L 03/13/22 11:25 Glucose Level 97 mg/dL (74-106) 03/13/22 11:25 Liver Function Panel: Alanine Aminotransferase (ALT/SGPT) 15 U/L (16-63) L 03/13/22 1 1:25 Aspartate Amino Transf (AST/SGOT) 22 U/L (15-37) 03/13/22 11:25 Coagulation Panel: INR International Normalized Ratio 1.0 (0.9-1.1) 03/13/22 11:2 5 Prothrombin Time 10.3 sec (9.3-11.0) 03/13/22 11:25 Activated Partial Thromboplast Time 18.2 sec (21.0-27.5) L 03/13/22 11:25 Cardiac Panel: Troponin I < 50 ng/L (<or=60) 03/13/22 Arterial Blood Gas: No Data to Display Venous Blood Gas: No Data to Display Pancreas Panel: No Data to Display Thyroid Panel: No Data to Display Infectious Disease: Coronavirus (COVID-19)(PCR) Negative (Negative) 03/13/22 11:15 Coronavirus 2019 Source Nasal/Nares 03/13/22 11:15 Blood Cultures: No Data to Display Toxicology Panel: No Data to Display Anesthesia Assessment and Plan Anesthesia History Personal History: No History of Anesthesia Complications Family History: No Family History of Anesthesia Complications Exercise Tolerance Exercise Tolerance: Metabolic Equivalents<4 Pertinent Negatives Pertinent Negatives: No Symptoms of GERD, No Major Cardiovascular Symptoms or Complaints, No Major Pulmonary Symptoms or Complaints and No History of CVA/TIA Cardiac & Pulmonary Exam Cardiac Exam: Normal S1/S2 Heart Sounds Pulmonary Exam: Clear Bilateral Breath Sounds Implantable Cardiac Device Does patient have a Pacemaker or an ICD?: No Airway Exam Known Difficult Airway: No Mallampati Class: 3 Mouth Opening: Normal (> 3cm) Thyromental Distance: Greater than 3 cm Facial Hair: Full [place]ler Neck Range of Motion: Full ROM Neck Circumference: Normal Teeth Condition: Edentulous ASA Classification ASA Score: ASA 2 Emergency Case?: No NPO Status NPO Status: NPO Clears >2 hours, Solids >8 hours Anesthesia Plan Resuscitation Status: Full Code Anesthesia Technique: Spinal Anesthesia Airway Planned: Natural Airway Monitors Used: Standard Monitors
--- NOTE | 2022-03-13 13:31 | W.ANESNERVE ---
Nerve Block Single Injection Procedure Date and Time Date Performed: 03/13/22 Procedure Start: 13:01 Location Where Procedure Performed Procedure Location: Emergency Department Reason Performed: Acute Pain Management Pain Diagnosis: Hip Pain Requesting Provider: Oniel Carlson Timeout Performed Timeout Performed: Yes Monitoring Used ECG, Blood Pressure, SpO2 and See EMR for corresponding vital signs Sterility Sterility: Hand Hygiene, Surgical Cap, Surgical Mask, Sterile Gloves and Chlorhexidine Sedation Given During Procedure Sedation Given (Indicate Dose Given): No Sedation given Patient Mental Status Patient Mental Status: Awake Nerve Block 1st Nerve Block: Laterality: Right Block Type: AMANDA Needle / Catheter Used: 100mm SonoPlex II Local Anesthetic Bolus (Indicate Dose Given): Lidocaine used for local infiltration of skin, Bupivacaine 0.25% Dose:: 10mL and Exparel Dose:: 10mL Additives (Indicate Dose Given): None Ultrasound: Not Used Nerve Stimulator: Not Used Paresthesia: None Procedure Tolerated: No Complications Procedure Outcome: Successful Performed By: Ayesha Hook Supervised By: Lenard Gaston
[2022-03-13] MEDS: Lactated Ringers 1,000 ML 100 ML IV ×3 (14:09→23:19)
[2022-03-13] MEDS: ACETAMINOPHEN 1,000 MG/100 ML BTL 400 MG IVPB ×2 (14:12→22:03)
[2022-03-13 14:48] LABS: Troponin I < 50 ng/L (<or=60)
[2022-03-13] MEDS: MAGNESIUM SULFATE 2 GM/50 ML BAG IVPB (14:51)
[2022-03-13] MEDS: Lidocaine 2% Jelly 6 ML SYR (14:55)
[2022-03-13 15:24] LABS: Bilirubin Negative (Negative); Blood Small (Negative); Clarity Clear (Clear); Glucose Negative (Negative); Ketones 15 mg/dL (Negative); Leukocyte Esterase Negative (Negative); Nitrite Negative (Negative); Specific Gravity 1.025 (1.005-1.025); Urobilinogen 0.2 EU/dL (Up TO 0.2)
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
[2022-03-13 15:42] LABS: WBC 0-2 HPF (0-5)
[2022-03-13 15:43] LABS: Bacteria Negative HPF (Negative); C & S Indicated? No; Crystals Negative HPF (Negative); Epithelial Cells Negative HPF (Negative); Mucus Moderate (Negative); Other Cells Mod Transitional (Negative)
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
[2022-03-13] MEDS: Bupivacaine 0.25% Pres-Free W/EPI 30 ML VIAL (18:00)
--- NOTE | 2022-03-13 18:14 | W.PM.PROGNOT ---
Date of Service Date of service: 03/13/22 Time of Service: 19:14 Assessment and Plan Assessment and plan (1) Displaced intertrochanteric fracture of right femur, initial encounter for closed fracture: Status: Acute Assessment and plan: 71-year-old male postop day #0 status post right Hip IMN for widely displaced subtrochanteric fracture; Right displaced distal tib/fib shaft fxs Unfortunately, patient has also right leg fractures, which will require additional surgery. Provisionally reduced and splinted. Elevate right leg. CT ordered for surgical planning. N.p.o. after midnight and IV fluids for possible surgery tomorrow. Complete 24 hours postoperative antibiotics from hip surgery Continue Mcwilliams catheter given bed rest immobility and additional surgery pending Pain control-Multimodal Physical therapy on hold pending definitive orthopedic care Hold chemical DVT prophylaxis pending surgery Continue mechanical DVT prophylaxis with SCDs and/or MED hose on the left side I will see the patient tomorrow and discuss right leg surgical options and timing Appreciate medical management (2) Displaced fracture of shaft of right tibia: Status: Acute Subjective Subjective Interval history since last seen: Resting comfortably in PACU. No complaints. Exam Narrative Exam Narrative: No distress. Tolerable discomfort right hip and leg. Hip dressings clean dry and intact. Demonstrates intact motor right toes without difficulty. Brisk cap refill throughout. Objective Last Vital Signs Temp 97.5 F L 03/13/22 13:55 Pulse 62 03/13/22 13:55 Resp 20 03/13/22 13:55 BP 154/74 H 03/13/22 14:27 Pulse Ox 98 03/13/22 13:55 Laboratory Results - last 24 hr 03/13/22 03/13/22 03/13/22 11:15 11:25 11:25 WBC 7.83 RBC 4.26 L Hgb 12.4 L Hct 37.9 L MCV 89 MCH 29.1 MCHC 32.7 RDW 12.7 Plt Count MPV Immature Gran % 0.4 Neutrophils % 49.2 Lymphocytes % 37.4 Monocytes % 8.9 Eosinophils % 3.3 Basophils % 0.8 Nucleated RBC % 0.0 Absolute Neutrophils 3.85 Absolute Lymphocytes 2.93 Absolute Monocytes 0.70 Absolute Eosinophils 0.26 Absolute Basophils 0.06 RBC Morphology Normal PT INR APTT Sodium 139 Potassium 2.8 L* Chloride 107 Carbon Dioxide 24.6 Anion Gap 7.4 BUN 15 Creatinine 0.8 Estimated GFR/1.73 m2 >= 60.00 Glucose 97 Calcium 7.3 L Magnesium 1.4 L Total Bilirubin 0.4 AST 22 ALT 15 L Alkaline Phosphatase 87 Troponin I < 50 Total Protein 6.0 L Albumin 3.0 L Urine Color Urine Clarity Urine pH Ur Specific [place] Urine Protein Urine Ketones Urine Blood Urine Nitrite Urine Bilirubin Urine Urobilinogen Ur Leukocyte Esterase Urine RBC Urine WBC Ur Epithelial Cells Urine Crystals Urine Bacteria Urine Mucus Urine Other Ur Culture Indicated? Urine Glucose COVID-19 Source Nasal/Nares SARS-CoV-2 (PCR) Negative 03/13/22 03/13/22 03/13/22 11:25 12:09 14:20 WBC RBC Hgb Hct MCV MCH MCHC RDW Plt Count MPV Immature Gran % Neutrophils % Lymphocytes % Monocytes % Eosinophils % Basophils % Nucleated RBC % Absolute Neutrophils Absolute Lymphocytes Absolute Monocytes Absolute Eosinophils Absolute Basophils RBC Morphology PT 10.3 INR 1.0 APTT 18.2 L Sodium Potassium Chloride Carbon Dioxide Anion Gap BUN Creatinine Estimated GFR/1.73 m2 Glucose Calcium Magnesium Total Bilirubin AST ALT Alkaline Phosphatase Troponin I < 50 Total Protein Albumin Urine Color Urine Clarity Urine pH Ur Specific [place] Urine Protein Urine Ketones Urine Blood Urine Nitrite Urine Bilirubin Urine Urobilinogen Ur Leukocyte Esterase Urine RBC Urine WBC Ur Epithelial Cells Urine Crystals Urine Bacteria Urine Mucus Urine Other Ur Culture Indicated? Urine Glucose COVID-19 Source Cancelled SARS-CoV-2 (PCR) Cancelled 03/13/22 14:50 WBC RBC Hgb Hct MCV MCH MCHC RDW Plt Count MPV Immature Gran % Neutrophils % Lymphocytes % Monocytes % Eosinophils % Basophils % Nucleated RBC % Absolute Neutrophils Absolute Lymphocytes Absolute Monocytes Absolute Eosinophils Absolute Basophils RBC Morphology PT INR APTT Sodium Potassium Chloride Carbon Dioxide Anion Gap BUN Creatinine Estimated GFR/1.73 m2 Glucose Calcium Magnesium Total Bilirubin AST ALT Alkaline Phosphatase Troponin I Total Protein Albumin Urine Color Yellow Urine Clarity Clear Urine pH 6.0 Ur Specific [place] 1.025 Urine Protein Negative Urine Ketones 15 H Urine Blood Small H Urine Nitrite Negative Urine Bilirubin Negative Urine Urobilinogen 0.2 Ur Leukocyte Esterase Negative Urine RBC 3-5 H Urine WBC 0-2 Ur Epithelial Cells Negative Urine Crystals Negative Urine Bacteria Negative Urine Mucus Moderate Urine Other Mod Transitional Ur Culture Indicated? No Urine Glucose Negative COVID-19 Source SARS-CoV-2 (PCR)
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
--- NOTE | 2022-03-13 19:06 | W.PM.OP ---
Operative Note Operative Note DATE OF PROCEDURE: 03/13/22 PRE-OP DIAGNOSIS: 1. Right hip displaced subtrochanteric fracture 2. Right leg displaced distal tip/fib fracture POST-OP DIAGNOSIS: same PROCEDURE: 1. Right hip intramedullary nail, CPT #13014 2. Right tib-fib fractures closed reduction with manipulation and splinting under anesthesia, CPT #99964 SURGEON: Oniel Carlson CONCESSION STAND ATTENDANT: Odette Cagle ANESTHESIA TYPE: Local By Surgeon and General LMA/ETT Refer to Anesthesia Record ESTIMATED BLOOD LOSS: 20 PATHOLOGY: none sent COMPLICATIONS: None Patient was transported to: PACU Patient's condition: stable Implants: Synthes TFNA [id number] 130 deg, 95 mm TFNA helical blade, 34 mm 5.0mm distal locking screw Indications: Please see medical record for details Findings: Unstable, subcutaneous near-open displaced subtrochanteric fracture; Obvious right leg deformity crepitation and distal tibia/fib fractures Procedure Description: In the operating room, general anesthesia was induced. The patient was transferred and positioned supine on the fracture table. The right leg had a distal injury and was carefully positioned in the boot in a neutral position with Coban wrapped up the leg for support in the boot as a temporary splint. All bony prominences were well padded. Pre-operative antibiotics were administered. C-arm fluoroscopy was used to confirm appropriate provisional fracture reduction taking care to maintain the foot in a relatively neutral position, which was possible given the subtrochanteric fracture pattern that did not require significant rotation, and only gentle inline traction was used at the start of the case. Reduction was assisted with downward pressure and lifting the thigh as well as planned open assisted techniques. The correct patient, procedure, and side of the procedure were all verified prior to incision. Local anesthetic with epinephrine was infiltrated about the planned start point as well as later about the lateral entry site for cephalomedullary and distal locking screws. A mini open incision was made laterally at the fracture site and a collinear clamp carefully delivered to the medial cortex and compressed perpendicular fracture site with good fracture reduction considering the challenging fracture pattern. Traction was removed as the clamp was maintaining reduction and the leg was maintained in neutral position. C-arm fluoroscopy was used to locate the appropriate start point for the guide wire on the tip of the greater trochanter. This guide wire was advanced centrally down the proximal femur to the level of the lessor trochanter. Care was taken to passed the guidewire inline with the proximal femur and canal to avoid displacing the reduced fracture on nail passage. Lateral images confirmed appropriate start point on the trochanter. Next the incision was extended about the guide wire to accommodate the nailing jig and this incision was carried down through the fascia and spread apart for ease of future instrument passage. The entry reamer was inserted along with the soft tissue protection tube and this reamer was used to open the proximal femur. The entry reamer, soft tissue protector, and guidewire were removed from the proximal femur. The appropriately selected nail was assembled on the back table to the jig and tested to ensure proper passage of the cephalomedullary drill. This implant was manually inserted into the proximal femur and advanced, but it was obviously too large for the proximal femur size. It was removed and a long ball-tipped guidewire passed down the femur. Flexible reamers were then done with the fracture maintained reduced reaming concentrically across the fracture from size 9 up to 13 mm to accommodate the nail. The nail was then advanced to the appropriate level for cephalomedullary fixation ensuring no significant displacement at the fracture site and passed distally for low central fixation and longer fixation distal to the subtrochanteric fracture of the distal static screw. The pulmonary clamp was removed and reduction largely maintained. There is the slightest step-off laterally that cannot be improved with positioning or direct pressure likely due to the mismatch of the proximal nail geometry in the subtrochanteric fracture despite positioning start point and best reaming attempts. Another incision was made laterally to accommodate the cephalomedullary aiming tube and trochar, which was advanced down to bone. The guide wire was then advanced into the femoral neck and adjusted on AP and lateral fluoroscopy until it was placed near subchondral bone in the center-center position in the femoral head. The depth gauge was used to measure the helical blade length accommodating for depth of guidewire insertion. Next, the drill was used to open the lateral cortex and the helical blade was advanced to the appropriate depth by gentle mallet blows. The set screw was engaged and backed off 180 degrees to allow for rotationally-controlled sliding and compression. The fracture was attempted to be compressed appropriately via the buttress and compression nut on the jig best possible, but this fracture pattern was not amenable to significant compression. The cephalomedullary aiming guide was removed. The distal locking screw guide was inserted through another small incision down the bone. The drill was used to drill for this static locking screw and measure the length. The appropriate length screw was then inserted bicortically. The jig was removed from the nail. Final AP and lateral fluoroscopic images were taken and confirmed acceptable fracture reduction and implant placement. All wounds were copiously irrigated. Deep layers were closed using 0 vicryl in an interrupted fashion. Subcutaneous tissue was closed using 2-0 monocryl in a buried interrupted fashion. Skin glue was applied to all incisions. Incisions were covered with Mepilex Band-Aids. The right leg was removed gently from the boot. There was obvious distal tib-fib fracture crepitation and deformity. Leg compartments were soft. An appropriately padded and molded plaster short leg splint was then carefully applied and maintained with the leg fractures in and a reduced position until hardened. The patient awoke from anesthesia without complication and was transferred to the recovery room in stable condition.
[2022-03-13] MEDS: MORPHine 2 MG/ML SYR IVP (19:52)
--- NOTE | 2022-03-13 20:02 | DI.VRAD_ITS ---
PROCEDURE INFORMATION: Exam: XR Right Tibia and Fibula Exam date and time: 03/13/2022 6:32 PM Age: 71 years old Clinical indication: Injury or trauma; Other: Right leg trauma; Fracture, traumatic; Closed fracture; Fibula and tibia; Bone in right fibula fracture not specified; Bone in right tibia fracture not specified; Injury date: 03/13/22 TECHNIQUE: Imaging protocol: Radiologic exam of the Right tibia and fibula. Views: 2 views. COMPARISON: CT LOWER EXTREMITY RT WO 04/25/2020 10:34 AM FINDINGS: Tubes, catheters and devices: There is a comminuted fracture involving the distal tibia which is status post external fixation. Bones/joints: No evidence of joint dislocation. Soft tissues: Not well evaluated due to overlying splinting material. IMPRESSION: Status post splinting of distal tibial fracture. No joint dislocation. Compare with prior imaging. Dictated and Authenticated by: Nurys Mcleod MD. Ordering:CAMILO Engle MD
--- NOTE | 2022-03-13 20:07 | DI.VRAD_ITS ---
PROCEDURE INFORMATION: Exam: XR Right Ankle Exam date and time: 03/13/2022 6:33 PM Age: 71 years old Clinical indication: Injury or trauma; Other: Right leg trauma; Fracture, traumatic; Closed fracture; Fibula and tibia and ankle; Bone in right fibula fracture not specified; Bone in right tibia fracture not specified; Injury date: 03/13/22 TECHNIQUE: Imaging protocol: Radiologic exam of the Right ankle. Views: 3 or more views. COMPARISON: CR XR ANKLE RT COMPLETE 06/21/2020 8:30 AM FINDINGS: Tubes, catheters and devices: There is a comminuted fracture involving the distal tibia, status post splinting. Bones/joints: The main distal fragment is slightly displaced posteriorly and the main superior fragment is slightly displaced medially. There is also a fibular fracture which is not well evaluated but demonstrates mild displacement. The ankle joint appears grossly intact. Soft tissues: Not well evaluated due to overlying splinting material. IMPRESSION: Status post splinting of distal tibial and fibular fractures. No evidence of joint dislocation. Compare with prior imaging of these fractures. Dictated and Authenticated by: Nurys Mcleod MD. Ordering:CAMILO Engle MD
[2022-03-13] MEDS: ceFAZolin 1 GM/50 ML BAG 100 GM (21:21)
--- NOTE | 2022-03-13 21:36 | DI.VRAD_ITS ---
PROCEDURE INFORMATION: Exam: CT Right Lower Extremity Without Contrast Exam date and time: 03/13/2022 8:57 PM Age: 71 years old Clinical indication: Injury or trauma; Other: Lower leg trauma; Fracture, traumatic; Closed fracture; Ankle; Right; Not specified; Injury date: 03/13/22 TECHNIQUE: Imaging protocol: CT of the Right lower extremity without contrast was performed. Radiation optimization: All CT scans at this facility use at least one of these dose optimization techniques: automated exposure control; mA and/or kV adjustment per patient size (includes targeted exams where dose is matched to clinical indication); or iterative reconstruction. COMPARISON: CT LOWER EXTREMITY RT WO 04/25/2020 10:34 AM FINDINGS: Bones/joints: Comminuted fracture again noted at the distal tibia. There is a butterfly fragment at the lateral aspect of the tibial fracture and there is also another smaller butterfly fragment noted within the bone marrow medullary space (image 63, series 4). Mild bony remodeling seen at the medial malleolus, secondary to old injury. A small osseous fragment is seen at the lateral aspect of the talus, which could represent chronic avulsion or chronic calcification of the anterior talofibular ligament. There is a medially displaced fracture of the fibula with mild lateral displacement of the proximal fragment. The ankle joint appears intact without dislocation. Additionally, there are fractures noted in the distal foot. A minimally displaced spiral fracture seen in the mid to distal 2nd metatarsal bone without joint dislocation. Minimally displaced fracture noted in the midshaft of the proximal 5th phalanx and distal 5th phalanx. Minimally displaced fracture is also seen in the proximal aspect of the proximal 4th phalanx and mid aspect of the middle and distal 4th phalanges. A slightly displaced fracture is seen at the base of the proximal 3rd phalanx which extends to the metatarsophalangeal joint space (image 37, series 9). Soft tissues: Subcutaneous edema and mild hematoma seen at the distal ankle predominantly in the tibial region. IMPRESSION: 1. Distal tibial comminuted fracture with note of a fragment entirely within the medullary bone marrow space. 2. Minimally displaced distal fibular fracture. 3. Multiple fractures involving the foot seen in the 2nd metatarsal bone and multiple phalanges as described. Dictated and Authenticated by: Nurys Mcleod MD. Ordering:CAMILO Engle MD
[2022-03-13] MEDS: MORPHine 10 MG/ML VIAL IVP (23:18)
[2022-03-14] VITALS (19 sets, daily range): BP systolic 112–147; BP diastolic 45–76; PULSE 55–84; RESP 12–18; TEMP 35.3–37.3; O2SAT 94–98; BMI 21.4
[2022-03-14] MEDS: MORPHine 2 MG/ML SYR IVP ×3 (02:36→09:24)
[2022-03-14] MEDS: ACETAMINOPHEN 1,000 MG/100 ML BTL 400 MG IVPB ×3 (06:00→22:06)
[2022-03-14] MEDS: ceFAZolin 1 GM/50 ML BAG IV ×2 (06:30→13:57)
--- NOTE | 2022-03-14 06:33 | W.ANESPOSTOP ---
Postoperative Evaluation Date, Time and Location Date Performed: 03/13/22 Time Performed: 19:21 Patient Location: Med/Surg Vital Signs Most Recent Imported Vital Signs: Most Recent Vital Signs Temp Pulse Resp BP Pulse Ox 36.5 C 75 14 120/55 L 97 03/14/22 05:59 03/14/22 05:59 03/14/22 05:59 03/14/22 05:59 03/14/22 05:59 Pain Score Most Recent Pain Score: Most Recent Pain Score Pain Level 7 03/14/22 06:00 Assessment Mental Status: Awake (Alert & Oriented to Patient Baseline) Airway and Respiratory Function: Patent airway with normal (patient baseline) respiratory exam Cardiovascular Function: Hemodynamically Stable Hydration Status: Adequately Hydrated Nausea & Vomiting: No Nausea or Vomiting Pain: Pain is tolerable per patient (No pain in right hip, pain is 5/10 in right ankle but states the pain is tolerableNo pain in right hip. Pain is 5/10 in right ankle but pt states it is tolerable) Peripheral Nerve Block: Patient did not receive a nerve block (AMANDA)
[2022-03-14 07:30] LABS: Absolute Lymphocyte Count 1.36 10^3/uL (1.2-3.4); Absolute Monocyte Count 0.99 10^3/uL (0.1-0.8); Absolute Neutrophil Count 7.67 10^3/uL (1.2-6.7); Basophils % 0.1; HCT 33.9 % (40.0-50.0); HGB 10.9 g/dL (13.5-17.5); Immature Grans % 0.3; Lymphocytes % 13.5; MCH 29.2 pg (27.0-33.0); MCHC 32.2 % (32.0-36.0); MCV 91 fL (80-95); Monocytes % 9.8; Neutrophils % 76.3; Platelet Count 207 10^3/uL (130-400); RBC 3.73 10^6/uL (4.36-5.78); RDW-SD 42.8 fL; WBC 10.06 10^3/uL (4.4-10.8)
[2022-03-14 07:31] LABS: Abs Immature Grans 0.03 10^3/uL (0.0-0.06); Absolute Basophil Count 0.01 10^3/uL (0.0-0.2)
[2022-03-14 07:55] LABS: Iron 34 ug/dL (65-175); Total Iron Binding Capacity 206 ug/dL (250-450); Transferrin Sat 17 % (20-55)
[2022-03-14 08:13] LABS: Anion Gap 8.4 mmol/L (3-11); BUN 16 mg/dL (7-18); CO2 26.6 mmol/L (21.0-32.0); CREATININE 0.9 mg/dL (0.70-1.30); Calcium 7.9 mg/dL (8.5-10.1); Chloride 103 mmol/L (98-107); Ferritin 163 ng/mL (26-388); Glucose 129 mg/dL (74-106); Magnesium 2.3 mg/dL (1.8-2.4); Potassium 3.9 mmol/L (3.5-5.1); Sodium 138 mmol/L (136-145)
--- NOTE | 2022-03-14 08:18 | INITIAL_ITS ---
- If Service Date Differs Date of service: 03/14/22 Time of Service: 08:18 Care Management Initial Assess REASON FOR HOSPITALIZATION:: Traumatic R Hip Fracture PAST MEDICAL HISTORY/PAST SURGICAL HISTORY:: Medical History . Carpal tunnel syndrome. Degenerative joint disease. Hyperlipidemia. Surgical History . H/O colonoscopy. 05/07/16 - Dr Allen, normal, internal hemorrhoids, repeat 10 years. S/P colonoscopy (~09/29/18) PREVIOUS FUNCTIONAL STATUS/SOCIAL/FAMILY SUPPORTS:: Medical History . Carpal tunnel syndrome. Degenerative joint disease. Hyperlipidemia. Surgical History . H/O colonoscopy. 05/07/16 - Dr Allen, normal, internal h emorrhoids, repeat 10 years. S/P colonoscopy (~09/29/18) CURRENT FUNCTIONAL STATUS:: Ambrocio will be brought back to the OR today for further surgical interventions, this time focused on his ankle, per MD. ADVANCE DIRECTIVES:: None on file. Has patient been provided with info about the portal/API?: Yes Did the patient sign up for the portal?: No CODE STATUS:: Full Code INSURANCE COVERAGE / FINANCIAL ISSUES:: Medicare. CURRENT HOME/COMMUNITY SERVICES/EQUIPMENT:: Bedside commode, grab bars, tub seat, hand held shower, FWW PRIMARY CARE PHYSICIAN:: Heidi Wells POTENTIAL DISCHARGE NEEDS:: Surgical interventions, evaluations for further needs. PATIENT/FAMILY EDUCATION NEEDS:: Review discharge instructions, discuss Ask Me Three. ANTICIPATED BARRIERS TO DISCHARGE:: None identified. TRANSPORTATION:: TBD by disposition. PLAN:: Ambrocio will return to the OR today for ankle fx today, anticipate he will return home when ready per MD. He will transport via private vehicle with family with likely outpatient PT follow up and follow up with his PCP and plan of care as prescribed.
[2022-03-14 08:25] LABS: Folate 13.4 ng/mL (8.6-20.0); Vitamin B12 221 pg/mL (193-986)
[2022-03-14 08:37] LABS: Vitamin D 25 Total 29.2 ng/mL (30-100)
[2022-03-14] MEDS: Normal Saline Flush 10 ML SYR IVP ×2 (09:25→15:13)
[2022-03-14] MEDS: IRON SUCROSE COMPLEX 300 MG in Normal Saline 250 ML 167 MG IVPB (11:33)
--- NOTE | 2022-03-14 11:39 | PGE_ITS ---
Date of Service Date of service: 03/14/22 Time of Service: 11:40 Assessment and Plan Assessment and plan (1) Displaced intertrochanteric fracture of right femur, initial encounter for closed fracture: Status: Deleted Assessment and plan: POD 1, stable, continue routine post operative care routine dvt prophylaxis pulmonary toilet pain management PT/OT when ankle repaired (2) Displaced fracture of shaft of right tibia: Status: Acute Assessment and plan: splint intact, good csmts awaiting surgical repair by orthopedics has been NPO (3) Hyperlipidemia: Status: Acute Assessment and plan: continue home medication discussed with Dr Henderson Subjective Subjective Patient reports: still having pain (right ankle, managed ), voiding w/o difficulty (raygoza draining clear yellow urine), no bowel movement and afebrile; denies tolerating liquids well (has been NPO) or shortness of breath Exam Const General: cooperative, healthy appearing, comfortable and no acute distress Nutritional Appearance: thin Orientation: alert, awake and oriented x3 HENMT Head: normal to inspection, normocephalic and atraumatic Face and sinus: normal facial exam Mouth: oral mucosae normal Neck Neck: normal visual inspection, full ROM and nontender Chest Chest: normal inspection of the chest Resp Effort & Inspection: normal respiratory effort Auscultation: clear to auscultation bilaterally Cardio Rate: regular rate Rhythm: regular rhythm GI Inspection: normal to inspection Palpation: soft and nontender Skin General skin exam: no rashes or lesions noted and other (surgical wound not visualized, dressing intact, no surrounding erythema) Neuro General: patient alert, patient awake and patient oriented x3 Extrem General: abnormal ROM Right lower extremity: lower leg (post/splint intact, toes with good sensation and movement, warm to touch. ); ROM limited Objective Last Vital Signs Temp 36.7 C 03/14/22 10:59 Pulse 59 L 03/14/22 10:59 Resp 17 03/14/22 10:59 BP 112/64 03/14/22 10:59 Pulse Ox 97 03/14/22 10:59 Laboratory Results - last 24 hr 03/13/22 03/13/22 03/13/22 11:15 11:25 11:25 WBC 7.83 RBC 4.26 L Hgb 12.4 L Hct 37.9 L MCV 89 MCH 29.1 MCHC 32.7 RDW 12.7 Plt Count MPV Immature Gran % 0.4 Neutrophils % 49.2 Lymphocytes % 37.4 Monocytes % 8.9 Eosinophils % 3.3 Basophils % 0.8 Nucleated RBC % 0.0 Absolute Neutrophils 3.85 Absolute Lymphocytes 2.93 Absolute Monocytes 0.70 Absolute Eosinophils 0.26 Absolute Basophils 0.06 RBC Morphology Normal PT INR APTT Sodium 139 Potassium 2.8 L* Chloride 107 Carbon Dioxide 24.6 Anion Gap 7.4 BUN 15 Creatinine 0.8 Estimated GFR/1.73 m2 >= 60.00 Glucose 97 Calcium 7.3 L Magnesium 1.4 L Iron TIBC Transferrin % Sat Ferritin Total Bilirubin 0.4 AST 22 ALT 15 L Alkaline Phosphatase 87 Troponin I < 50 Total Protein 6.0 L Albumin 3.0 L Vitamin B12 25-OH Vitamin D Total Folate Urine Color Urine Clarity Urine pH Ur Specific [place] Urine Protein Urine Ketones Urine Blood Urine Nitrite Urine Bilirubin Urine Urobilinogen Ur Leukocyte Esterase Urine RBC Urine WBC Ur Epithelial Cells Urine Crystals Urine Bacteria Urine Mucus Urine Other Ur Culture Indicated? Urine Glucose COVID-19 Source SARS-CoV-2 (PCR) Negative 03/13/22 03/13/22 03/13/22 11:25 12:09 14:20 WBC RBC Hgb Hct MCV MCH MCHC RDW Plt Count MPV Immature Gran % Neutrophils % Lymphocytes % Monocytes % Eosinophils % Basophils % Nucleated RBC % Absolute Neutrophils Absolute Lymphocytes Absolute Monocytes Absolute Eosinophils Absolute Basophils RBC Morphology PT 10.3 INR 1.0 APTT 18.2 L Sodium Potassium Chloride Carbon Dioxide Anion Gap BUN Creatinine Estimated GFR/1.73 m2 Glucose Calcium Magnesium Iron TIBC Transferrin % Sat Ferritin Total Bilirubin AST ALT Alkaline Phosphatase Troponin I < 50 Total Protein Albumin Vitamin B12 25-OH Vitamin D Total Folate Urine Color Urine Clarity Urine pH Ur Specific [place] Urine Protein Urine Ketones Urine Blood Urine Nitrite Urine Bilirubin Urine Urobilinogen Ur Leukocyte Esterase Urine RBC Urine WBC Ur Epithelial Cells Urine Crystals Urine Bacteria Urine Mucus Urine Other Ur Culture Indicated? Urine Glucose COVID-19 Source Cancelled SARS-CoV-2 (PCR) Cancelled 03/13/22 03/14/22 03/14/22 14:50 06:08 06:08 WBC RBC Hgb Hct MCV MCH MCHC RDW Plt Count MPV Immature Gran % Neutrophils % Lymphocytes % Monocytes % Eosinophils % Basophils % Nucleated RBC % Absolute Neutrophils Absolute Lymphocytes Absolute Monocytes Absolute Eosinophils Absolute Basophils RBC Morphology PT INR APTT Sodium 138 Potassium 3.9 D Chloride 103 Carbon Dioxide 26.6 Anion Gap 8.4 BUN 16 Creatinine 0.9 Estimated GFR/1.73 m2 >= 60.00 Glucose 129 H Calcium 7.9 L Magnesium 2.3 Iron TIBC Transferrin % Sat Ferritin 163 Total Bilirubin AST ALT Alkaline Phosphatase Troponin I Total Protein Albumin Vitamin B12 25-OH Vitamin D Total 29.2 L Folate Urine Color Yellow Urine Clarity Clear Urine pH 6.0 Ur Specific [place] 1.025 Urine Protein Negative Urine Ketones 15 H Urine Blood Small H Urine Nitrite Negative Urine Bilirubin Negative Urine Urobilinogen 0.2 Ur Leukocyte Esterase Negative Urine RBC 3-5 H Urine WBC 0-2 Ur Epithelial Cells Negative Urine Crystals Negative Urine Bacteria Negative Urine Mucus Moderate Urine Other Mod Transitional Ur Culture Indicated? No Urine Glucose Negative COVID-19 Source SARS-CoV-2 (PCR) 03/14/22 03/14/22 03/14/22 06:08 06:08 06:08 WBC 10.06 RBC 3.73 L Hgb 10.9 L Hct 33.9 L MCV 91 MCH 29.2 MCHC 32.2 RDW 13.0 Plt Count 207 MPV 10.0 Immature Gran % 0.3 Neutrophils % 76.3 Lymphocytes % 13.5 Monocytes % 9.8 Eosinophils % 0.0 Basophils % 0.1 Nucleated RBC % 0.0 Absolute Neutrophils 7.67 H Absolute Lymphocytes 1.36 Absolute Monocytes 0.99 H Absolute Eosinophils 0.00 Absolute Basophils 0.01 RBC Morphology PT INR APTT Sodium Potassium Chloride Carbon Dioxide Anion Gap BUN Creatinine Estimated GFR/1.73 m2 Glucose Calcium Magnesium Iron 34 L TIBC 206 L Transferrin % Sat 17 L Ferritin Total Bilirubin AST ALT Alkaline Phosphatase Troponin I Total Protein Albumin Vitamin B12 221 25-OH Vitamin D Total Folate 13.4 Urine Color Urine Clarity Urine pH Ur Specific [place] Urine Protein Urine Ketones Urine Blood Urine Nitrite Urine Bilirubin Urine Urobilinogen Ur Leukocyte Esterase Urine RBC Urine WBC Ur Epithelial Cells Urine Crystals Urine Bacteria Urine Mucus Urine Other Ur Culture Indicated? Urine Glucose COVID-19 Source SARS-CoV-2 (PCR)
--- NOTE | 2022-03-14 13:16 | W.PM.PROGNOT ---
Date of Service Date of service: 03/14/22 Time of Service: 13:16 Assessment and Plan Assessment and plan (1) Displaced intertrochanteric fracture of right femur, initial encounter for closed fracture: Status: Acute Assessment and plan: 71-year-old male postop day #1 status post right Hip IMN for widely displaced subtrochanteric fracture; Right displaced distal tib/fib shaft fxs Doing well after right hip surgery. Pending right leg surgery this afternoon. Plan for right tibia intramedullary nailing as CT shows sufficient distal bone and no significant intra-articular extension. The risks, benefits, and alternatives were thoroughly discussed. Patient was counseled regarding pain management, expected postoperative course, and recovery timeline. All questions were answered. Informed consent was obtained. Patient agrees and understands the treatment plan. Weightbearing to be determined after this next surgery. Continue Mcwilliams catheter given bed rest immobility and additional surgery pending Pain control-Multimodal Physical therapy on hold pending definitive orthopedic care Hold chemical DVT prophylaxis pending surgery Continue mechanical DVT prophylaxis with SCDs and/or MED hose on the left side (2) Displaced fracture of shaft of right tibia: Status: Acute Subjective Subjective Interval history since last seen: Comfortable, resting in bed. No complaints. Denies any other injuries or sources of orthopedic pain. Denies any pain in his bruised toes or right elbow. Exam Narrative Exam Narrative: Comfortable, awake alert oriented no distress Thigh and leg compartments soft Thigh dressings clean dry and intact Tolerates gentle thigh range of motion with only mild discomfort Short leg plaster splint intact with elevated extremity Demonstrates active motor toes No pain with passive stretch Brisk cap refill Objective Last Vital Signs Temp 98.1 F 03/14/22 10:59 Pulse 59 L 03/14/22 10:59 Resp 17 03/14/22 10:59 BP 112/64 03/14/22 10:59 Pulse Ox 97 03/14/22 10:59 Laboratory Results - last 24 hr 03/13/22 03/13/22 03/14/22 14:20 14:50 06:08 WBC RBC Hgb Hct MCV MCH MCHC RDW Plt Count MPV Immature Gran % Neutrophils % Lymphocytes % Monocytes % Eosinophils % Basophils % Nucleated RBC % Absolute Neutrophils Absolute Lymphocytes Absolute Monocytes Absolute Eosinophils Absolute Basophils Sodium 138 Potassium 3.9 D Chloride 103 Carbon Dioxide 26.6 Anion Gap 8.4 BUN 16 Creatinine 0.9 Estimated GFR/1.73 m2 >= 60.00 Glucose 129 H Calcium 7.9 L Magnesium 2.3 Iron TIBC Transferrin % Sat Ferritin 163 Troponin I < 50 Vitamin B12 25-OH Vitamin D Total Folate Urine Color Yellow Urine Clarity Clear Urine pH 6.0 Ur Specific [place] 1.025 Urine Protein Negative Urine Ketones 15 H Urine Blood Small H Urine Nitrite Negative Urine Bilirubin Negative Urine Urobilinogen 0.2 Ur Leukocyte Esterase Negative Urine RBC 3-5 H Urine WBC 0-2 Ur Epithelial Cells Negative Urine Crystals Negative Urine Bacteria Negative Urine Mucus Moderate Urine Other Mod Transitional Ur Culture Indicated? No Urine Glucose Negative 03/14/22 03/14/22 03/14/22 06:08 06:08 06:08 WBC 10.06 RBC 3.73 L Hgb 10.9 L Hct 33.9 L MCV 91 MCH 29.2 MCHC 32.2 RDW 13.0 Plt Count 207 MPV 10.0 Immature Gran % 0.3 Neutrophils % 76.3 Lymphocytes % 13.5 Monocytes % 9.8 Eosinophils % 0.0 Basophils % 0.1 Nucleated RBC % 0.0 Absolute Neutrophils 7.67 H Absolute Lymphocytes 1.36 Absolute Monocytes 0.99 H Absolute Eosinophils 0.00 Absolute Basophils 0.01 Sodium Potassium Chloride Carbon Dioxide Anion Gap BUN Creatinine Estimated GFR/1.73 m2 Glucose Calcium Magnesium Iron 34 L TIBC 206 L Transferrin % Sat 17 L Ferritin Troponin I Vitamin B12 25-OH Vitamin D Total 29.2 L Folate Urine Color Urine Clarity Urine pH Ur Specific [place] Urine Protein Urine Ketones Urine Blood Urine Nitrite Urine Bilirubin Urine Urobilinogen Ur Leukocyte Esterase Urine RBC Urine WBC Ur Epithelial Cells Urine Crystals Urine Bacteria Urine Mucus Urine Other Ur Culture Indicated? Urine Glucose 03/14/22 06:08 WBC RBC Hgb Hct MCV MCH MCHC RDW Plt Count MPV Immature Gran % Neutrophils % Lymphocytes % Monocytes % Eosinophils % Basophils % Nucleated RBC % Absolute Neutrophils Absolute Lymphocytes Absolute Monocytes Absolute Eosinophils Absolute Basophils Sodium Potassium Chloride Carbon Dioxide Anion Gap BUN Creatinine Estimated GFR/1.73 m2 Glucose Calcium Magnesium Iron TIBC Transferrin % Sat Ferritin Troponin I Vitamin B12 221 25-OH Vitamin D Total Folate 13.4 Urine Color Urine Clarity Urine pH Ur Specific [place] Urine Protein Urine Ketones Urine Blood Urine Nitrite Urine Bilirubin Urine Urobilinogen Ur Leukocyte Esterase Urine RBC Urine WBC Ur Epithelial Cells Urine Crystals Urine Bacteria Urine Mucus Urine Other Ur Culture Indicated? Urine Glucose
--- NOTE | 2022-03-14 13:45 | ANES.PREOP_ITS ---
General Info Date of Service Date Performed: 03/14/22 Height: 5 ft 9 in Weight: 65.8 kg Body Mass Index (BMI): 21.4 Surgical Procedure: Operation Date: 03/13/22 16:30 Proposed Procedure Side Surgeon p Hip TFNA Oniel Carlson MD Actual Procedure Side Surgeon p Hip TFNA Right Oniel Carlson MD s Closed Reduction Oniel Carlson MD Pre-Op Diagnosis Post-Op Diagnosis Traumatic R Hip Fracture Traumatic R Hip Fracture Operation Date: 03/14/22 15:25 Proposed Procedure Side Surgeon p Tibial Rodding/IM Nailing Right Oniel Carlson MD Meds Allergies and Home Medications Allergies Allergy/AdvReac Type Severity Reaction Status Date / Time No Known Allergies Allergy Verified 10/23/21 14:57 Home Medication Medication Instructions Recorded atorvastatin 40 mg tablet (Lipitor) 40 mg PO DAILY 08/31/17 ibuprofen 600 mg tablet 600 mg PO Q8H PRN 10/23/21 sildenafil 50 mg tablet 50 mg PO DAILY PRN 10/23/21 Current Visit Medications: Current Medications Generic Name Dose Route Start Last Admin Trade Name Freq PRN Reason Stop Dose Admin Al Hydrox/Mg Hydrox/Simethicone 30 ml 03/13/22 12:19 Mylanta Suspension 30 Ml Cup PO Q2H PRN PRN Calcium/Vitamin D 1 tab 03/14/22 09:35 03/14/22 10:54 Calcium 600mg/Vit D 200u Tab PO Not Given BID PRASHANT Dimethicone/Zinc Oxide 0 gm 03/13/22 12:19 Russ Protect Cream 142 Gm Tube TP PRN PRN Docusate Sodium 100 mg 03/13/22 12:19 Docusate Sodium 100 Mg Cap PO TID PRN PRN Sodium Chloride 500 mls @ 0 mls/hr 03/13/22 12:19 Saline 500ml Bag IV PRN PRN As Directed Ringer's Solution 1,000 mls @ 100 mls/hr 03/13/22 12:30 03/13/22 23:19 IV 100 mls/hr INFUSION PRASHANT Administration Acetaminophen 1,000 mg in 100 mls @ 400 mls/hr 03/13/22 14:00 03/14/22 06:29 Ofirmev IVPB Infused Q8H PRASHANT Infusion Ondansetron HCl 4 mg/ Sodium 52 mls @ 200 mls/hr 03/13/22 19:30 Chloride IVPB Q6H PRN PRN Cefazolin Sodium/Dextrose 1 gm in 50 mls @ 100 mls/hr 03/14/22 06:00 03/14/22 07:56 Ancef Duplex IV 03/14/22 14:29 Infused Q8H PRASHANT Infusion Iron Sucrose 300 mg/ Sodium 265 mls @ 167 mls/hr 03/14/22 11:00 03/14/22 11:33 Chloride IVPB 03/16/22 10:06 167 mls/hr DAILY PRASHANT Administration IV Miscellaneous Supplies 1 each 03/13/22 11:00 Iv Access IV DIRECTED PRASHANT Magnesium Hydroxide 30 ml 03/13/22 12:19 Milk Of Magnesia 30 Ml Cup PO DAILY PRN PRN Morphine Sulfate 2 - 4 mg 03/13/22 19:30 03/13/22 23:18 Morphine 10 Mg/Ml Vial IVP 2 mg Q2H PRN PRN Administration Naproxen 250 - 500 mg 03/13/22 19:30 Naproxen 500 Mg Tab PO BID PRN PRN Oxycodone HCl 5 - 10 mg 03/13/22 19:30 Oxycodone 5 Mg Tab PO Q4H PRN PRN Sodium Chloride 0 ml 03/13/22 10:57 03/14/22 09:25 Normal Saline Flush 10 Ml Syr IVP 10 ml PRN PRN Administration Sodium Chloride 0 ml 03/13/22 12:19 Normal Saline Flush 10 Ml Syr IVP PRN PRN PFSH Active Problems Active Problems: Problem Status Onset Code Displaced fracture of shaft of right tibia S82.201A Hyperlipidemia E78.5 Displaced intertrochanteric fracture of right femur, initial encounter for closed fracture 03/13/22 S72.141A Fracture of medial malleolus of right tibia S82.51XA S/P colonoscopy ~09/29/18 Z98.890 Encounter for screening colonoscopy Z12.11 H/O colonoscopy Z98.890 Medical History Medical History Carpal tunnel syndrome Degenerative joint disease Hyperlipidemia Surgical History Surgical History H/O colonoscopy 05/07/16 - Dr Allen, normal, internal hemorrhoids, repeat 10 years S/P colonoscopy (~09/29/18) Tobacco Smoking/Tobacco Use Status: Former Tobacco Use Alcohol Alcohol Intake: former Substance Use Substance use: Never Substance use type: does not use Vital Signs and Lab Results Vital Signs Most Recent Vital Signs in EMR: Most Recent Vital Signs Temp Pulse Resp BP Pulse Ox 36.7 C 59 L 17 112/64 97 03/14/22 10:59 03/14/22 10:59 03/14/22 10:59 03/14/22 10:59 03/14/22 10:59 Lab Results Result Diagrams: 03/14/22 06:08 03/14/22 06:08 Blood Type / Crossmatch: No Data to Display Complete Blood Count: White Blood Count 10.06 10^3/uL (4.4-10.8) 03/14/22 06:08 Red Blood Count 3.73 10^6/uL (4.36-5.78) L 03/14/22 06:08 Hemoglobin 10.9 g/dL (13.5-17.5) L 03/14/22 06:08 Hematocrit 33.9 % (40.0-50.0) L 03/14/22 06:08 Platelet Count 207 10^3/uL (130-400) 03/14/22 06:08 Complete Metabolic Panel: Sodium Level 138 mmol/L (136-145) 03/14/22 06:08 Potassium Level 3.9 mmol/L (3.5-5.1) 03/14/22 06:08 Chloride Level 103 mmol/L (98-107) 03/14/22 06:08 Carbon Dioxide Level 26.6 mmol/L (21.0-32.0) 03/14/22 06:08 Blood Urea Nitrogen 16 mg/dL (7-18) 03/14/22 06:08 Creatinine 0.9 mg/dL (0.70-1.30) 03/14/22 06:08 Estimated GFR/1.73 m2 >= 60.00 (mL/min/1.73m2) 03/14/22 06:08 Magnesium Level 2.3 mg/dL (1.8-2.4) 03/14/22 06:08 Calcium Level 7.9 mg/dL (8.5-10.1) L 03/14/22 06:08 Albumin 3.0 g/dL (3.4-5.0) L 03/13/22 11:25 Glucose Level 129 mg/dL (74-106) H 03/14/22 06:08 Liver Function Panel: Alanine Aminotransferase (ALT/SGPT) 15 U/L (16-63) L 03/13/22 1 1:25 Aspartate Amino Transf (AST/SGOT) 22 U/L (15-37) 03/13/22 11:25 Coagulation Panel: INR International Normalized Ratio 1.0 (0.9-1.1) 03/13/22 11:2 5 Prothrombin Time 10.3 sec (9.3-11.0) 03/13/22 11:25 Activated Partial Thromboplast Time 18.2 sec (21.0-27.5) L 03/13/22 11:25 Cardiac Panel: Troponin I < 50 ng/L (<or=60) 03/13/22 Arterial Blood Gas: No Data to Display Venous Blood Gas: No Data to Display Pancreas Panel: No Data to Display Thyroid Panel: No Data to Display Infectious Disease: Coronavirus (COVID-19)(PCR) Negative (Negative) 03/13/22 11:15 Coronavirus 2019 Source Nasal/Nares 03/13/22 11:15 Blood Cultures: No Data to Display Toxicology Panel: No Data to Display Imaging and Studies Imaging and Studies Study information below may be from another EMR and interpreted by another provider. Please see original notes in EMR for more complete details. EKG Summary: DATE/TIME OF SERVICE: 03/13/22 1110 : 1950PERFORMING LOCATION: [place] APPROVED REPORT Exam: Resting ECG Reason for Exam: preop Patient Location: E HR:55 bpm ECG Measurements Heart Rate 55 AXIS ME 155 P 70 QRSd 112 QRS 60 QT 419 T54 QTc 400 Conclusion Sinus bradycardia...rate< 60 Anesthesia Assessment and Plan Anesthesia History Personal History: No History of Anesthesia Complications Family History: No Family History of Anesthesia Complications Exercise Tolerance Exercise Tolerance: Metabolic Equivalents<4 Pertinent Negatives Pertinent Negatives: No Symptoms of GERD, No Major Cardiovascular Symptoms or Complaints, No Major Pulmonary Symptoms or Complaints and No History of CVA/TIA Cardiac & Pulmonary Exam Cardiac Exam: Normal S1/S2 Heart Sounds Pulmonary Exam: Clear Bilateral Breath Sounds Implantable Cardiac Device Does patient have a Pacemaker or an ICD?: No Airway Exam Known Difficult Airway: No Mallampati Class: 3 Mouth Opening: Normal (> 3cm) Thyromental Distance: Greater than 3 cm Neck Range of Motion: Full ROM Neck Circumference: Normal Teeth Condition: Edentulous ASA Classification ASA Score: ASA 2 Emergency Case?: No NPO Status NPO Status: NPO Clears >2 hours, Solids >8 hours Anesthesia Plan Resuscitation Status: Full Code Anesthesia Technique: General Anesthesia Airway Planned: LMA Monitors Used: Standard Monitors
[2022-03-14] MEDS: MORPHine 4 MG/ML SYR IVP (15:13)
--- NOTE | 2022-03-14 16:30 | DI.RAD_ITS ---
Exam(s) XR TIB/FIB RT EXAM: XR TIB/FIB RT CLINICAL HISTORY: Displaced fracture of shaft of right tibia TECHNIQUE: 2D and realtime digital imaging was performed. CONTRAST MATERIAL: Refer to procedure report. COMPARISON: CR,XR XR ANKLE RT COMPLETE from 03/13/2022 FINDINGS: Fluoroscopy was provided for Dr. Carlson during the performance of a reduction and internal fixation o f the distal tibial fracture. Please refer to the procedure report for complete details. Ka,r=8.0 mGy IMPRESSION: RADIATION DOSE DELIVERED:
[2022-03-14] MEDS: Lactated Ringers 1,000 ML 30 ML IV (17:15)
[2022-03-14] MEDS: Hydrogen Peroxide 3% 480 ML BTL (19:24)
[2022-03-14] MEDS: Bupivacaine 0.25% Pres-Free 10 ML VIAL (19:26)
[2022-03-14] MEDS: Lidocaine 1% Multi-Dose W/EPI 1/100,000 50 ML VIAL (19:26)
--- NOTE | 2022-03-14 19:59 | W.PM.OP ---
Operative Note Operative Note DATE OF PROCEDURE: 03/13/22 PRE-OP DIAGNOSIS: Right displaced distal tibia and fibular shaft fractures POST-OP DIAGNOSIS: same PROCEDURE: Right tibia intramedullary nailing, CPT #73998 SURGEON: Oniel Carlson PATIENT REGISTRAR: Andreina Torrez ANESTHESIA TYPE: Local By Surgeon and General LMA/ETT Refer to Anesthesia Record ESTIMATED BLOOD LOSS: 20 TOURNIQUET TIME: 0 COMPLICATIONS: None Patient was transported to: PACU Patient's condition: stable Implants: Synthes Expert Tibial Nail 10 x 345 mm with 3x 5.0 mm distal locking screws and 2x 5.0 mm proximal locking screws Indications: Please see complete medical record for details. Findings: Highly comminuted, segmental distal tibia and fibular shaft fractures Procedure Description: In the operating room, general anesthesia was induced. The patient was positioned supine on the operating room table. All bony prominences were well-padded. Preoperative antibiotics were administered. The right lower extremity was prepped and draped in the usual sterile fashion. The correct patient, procedure, and side of the procedure were all verified prior to incision. Local anesthetic was pretty injected about the planned lateral parapatellar incision. The lateral extra-articular approach was used in the semiextended position mobilizing the patella medially and splitting the retinaculum but working above the capsule. The awl was used to open the proximal tibia. The ball-tipped guidewire was passed down to the fracture site. The leg grossly aligned and multiple comminuted and segmental fragments reduced manually. Attempt was made to clamp the fragments with bone forceps, but there was too much comminution. Instead, the guidewire was directed past the fracture and into a central position the distal tibial physeal scar. Reaming was done over the guidewire starting with 8.5 and going up to 12.0 mm taking care to ream across the fracture into reduced position. The depth gauge was used to confirm nail depth ensuring adequate length. The nail was assembled to the jig and inserted over the guidewire to the fracture. It had to be carefully directed past the fracture site in neutral reduced position ensuring appropriate rotation and redirecting back and forth to get past an incarcerated bone fragment. The wire was pulled when the nail was approaching the physeal scar and again optimal reduction and alignment confirmed prior to delivering the nail as distally as reasonable into a central position relative to the ankle mortise the distal tibia physeal scar. The fracture had appropriate apposition and was not amenable to compression given the comminution and segmental components. The nail was appropriately just countersunk at the knee. Maintaining rotation and alignment in optimal position, distal locking was done using perfect circles technique with the distalmost medial to lateral screw followed by the anterior lateral to posterior medial screw using a mini open technique and lastly the more proximal medial to lateral screw, which was then removed and the near cortex overdrilled and screw replaced and attempted leg fashion to reduce fracture fragments. Proximally, through the jig 2 screws were placed medial lateral in the static and dynamic positions. The jig was removed. Final x-rays confirmed appropriate hardware placement and fracture alignment. All incisions were copiously irrigated with normal saline. Local anesthetic was injected about all the surgical sites. The small incisions were closed using 3-0 nylon horizontal mattresses. The lateral patellar retinaculum was reapproximated in 2-0 Monocryl interrupted. Subcutaneous tissue was closed in 2-0 Monocryl. Interrupted. Skin was closed using horizontal 3-0 nylon mattresses here as well. The extremity was cleansed with hydrogen peroxide and dried. Xeroform applied over all incisions followed by gauze, ABD pad, and sterile soft roll. The foot up to the distal thigh were gently wrapped in Wilfrid bandages. The patient awoke from anesthesia without complication and was transferred to the recovery room in a stable condition.
--- NOTE | 2022-03-14 20:04 | PGE_ITS ---
Date of Service Date of service: 03/14/22 Time of Service: 20:13 Assessment and Plan Assessment and plan (1) Displaced intertrochanteric fracture of right femur, initial encounter for closed fracture: Status: Acute Assessment and plan: 71-year-old male postop day #1 status post right Hip IMN for widely displaced subtrochanteric fracture; postop day #0 status post right tibia intramedullary nailing for displaced distal tib/fib shaft fxs Right lower extremity Partial weight bearing (up to 50%) Strict elevation right lower extremity for the next few days Physical therapy ordered Pain control- multimodal as ordered SCDs and MED shakirae left lower extremity Start chemo DVT prophylaxis tomorrow morning and continue for 30 days: Higher than usual risk due to concomitant hip and leg fractures. Would recommend Lovenox 30-40 mg daily while inpatient or at rehab facility and transition to aspirin 325 mg twice daily when able to mobilize and discharge home Discontinue Mcwilliams tomorrow assuming hemodynamically stable and appropriate urine output Keep dressings in place and clean and dry until follow-up Will discuss with primary medical team Call me directly if any questions or concerns Follow-up outpatient with Dr. Carlson at [facility] orthopedics at 8:30AM on 04/03/22 (2) Displaced fracture of shaft of right tibia: Status: Acute Assessment and plan: as above Subjective Subjective Interval history since last seen: Resting comfortably in PACU Exam Narrative Exam Narrative: No acute distress. Right lower extremity dressings are clean dry intact. Soft compartments. 1+ dorsalis pedis pulse. Brisk cap refill all toes. Still somnolent for remainder of exam but does demonstrate flicker toes. Objective Last Vital Signs Temp 97.5 F L 03/14/22 20:01 Pulse 55 L 03/14/22 20:01 Resp 12 03/14/22 20:01 BP 138/58 L 03/14/22 20:01 Pulse Ox 97 03/14/22 20:01 Laboratory Results - last 24 hr 03/14/22 03/14/22 03/14/22 06:08 06:08 06:08 WBC 10.06 RBC 3.73 L Hgb 10.9 L Hct 33.9 L MCV 91 MCH 29.2 MCHC 32.2 RDW 13.0 Plt Count 207 MPV 10.0 Immature Gran % 0.3 Neutrophils % 76.3 Lymphocytes % 13.5 Monocytes % 9.8 Eosinophils % 0.0 Basophils % 0.1 Nucleated RBC % 0.0 Absolute Neutrophils 7.67 H Absolute Lymphocytes 1.36 Absolute Monocytes 0.99 H Absolute Eosinophils 0.00 Absolute Basophils 0.01 Sodium 138 Potassium 3.9 D Chloride 103 Carbon Dioxide 26.6 Anion Gap 8.4 BUN 16 Creatinine 0.9 Estimated GFR/1.73 m2 >= 60.00 Glucose 129 H Calcium 7.9 L Magnesium 2.3 Iron TIBC Transferrin % Sat Ferritin 163 Vitamin B12 25-OH Vitamin D Total 29.2 L Folate 03/14/22 03/14/22 06:08 06:08 WBC RBC Hgb Hct MCV MCH MCHC RDW Plt Count MPV Immature Gran % Neutrophils % Lymphocytes % Monocytes % Eosinophils % Basophils % Nucleated RBC % Absolute Neutrophils Absolute Lymphocytes Absolute Monocytes Absolute Eosinophils Absolute Basophils Sodium Potassium Chloride Carbon Dioxide Anion Gap BUN Creatinine Estimated GFR/1.73 m2 Glucose Calcium Magnesium Iron 34 L TIBC 206 L Transferrin % Sat 17 L Ferritin Vitamin B12 221 25-OH Vitamin D Total Folate 13.4
--- NOTE | 2022-03-14 20:04 | W.ANESPOSTOP ---
Postoperative Evaluation Date, Time and Location Date Performed: 03/14/22 Time Performed: 20:04 Patient Location: PACU Vital Signs Most Recent Imported Vital Signs: Most Recent Vital Signs Temp Pulse Resp BP Pulse Ox 36.4 C L 55 L 12 138/58 L 97 03/14/22 20:01 03/14/22 20:01 03/14/22 20:01 03/14/22 20:01 03/14/22 20:01 Most Recent Vital Signs Temp Pulse Resp BP Pulse Ox 36.5 C 75 14 120/55 L 97 03/14/22 05:59 03/14/22 05:59 03/14/22 05:59 03/14/22 05:59 03/14/22 05:59 Pain Score Most Recent Pain Score: Most Recent Pain Score Pain Level 0 03/14/22 20:04 Assessment Mental Status: Arousable with meaningful communication Airway and Respiratory Function: Patent airway with normal (patient baseline) respiratory exam Cardiovascular Function: Hemodynamically Stable Hydration Status: Adequately Hydrated Nausea & Vomiting: No Nausea or Vomiting Pain: Pt. Denies Any Pain Peripheral Nerve Block: Patient did not receive a nerve block
[2022-03-14] MEDS: Lactated Ringers 1,000 ML 100 ML IV (21:00)
[2022-03-14] MEDS: ceFAZolin 1 GM/50 ML BAG IVPB (22:05)
[2022-03-14] MEDS: oxyCODONE 5 MG TAB PO (22:05)
[2022-03-14] MEDS: Calcium 600mg/Vit D 200U TAB 1 TAB PO (22:05)
[2022-03-15] VITALS (8 sets, daily range): BP systolic 115–154; BP diastolic 59–73; PULSE 63–75; RESP 15–18; TEMP 35.8–37.3; O2SAT 93–97
[2022-03-15] MEDS: ACETAMINOPHEN 1,000 MG/100 ML BTL 400 MG IVPB (06:08)
[2022-03-15] MEDS: ceFAZolin 1 GM/50 ML BAG IVPB ×2 (06:46→14:30)
[2022-03-15] MEDS: Cyanocobalamin 500 MCG TAB 1000 MCG PO (08:41)
[2022-03-15] MEDS: Normal Saline Flush 10 ML SYR IVP (08:42)
[2022-03-15] MEDS: Calcium 600mg/Vit D 200U TAB 1 TAB PO ×2 (08:42→19:13)
[2022-03-15] MEDS: IRON SUCROSE COMPLEX 300 MG in Normal Saline 250 ML 167 MG IVPB (08:42)
--- NOTE | 2022-03-15 09:04 | IN_ITS ---
Date of service: 03/15/22 Time of Service: 09:04 PT Notes Visit Reasons: Traumatic R Hip Fracture Physical Therapy Inpatient Initial Evaluation Date: 03/15/2022 Referring Doctor: rebel Carlson MD PT Orders: PT CONSULT: S/P Ortho surgery. Partial weightbearing (up to 50%) RLE Precautions: Fall. Standard. May weight bear up to 50% partial weight bearing on the R LE with AD. Patient Profile/Admitting Diagnosis: Ambrocio is a 71-year-old male who sustained a widely displaced subtrochanteric fracture on the right hip tatus post right intramedullary nailing on postoperative day 2. He also sustained a highly comminuted segmental distal tibial fibular fracture on the L side and is status post right tibia intramedullary nailing on postoperative day 1. PMHX: All Active Problems?(Updated 03/13/22 @ 17:18 by Rama Lynch NP) Hyperlipidemia (Acute) Displaced intertrochanteric fracture of right femur, initial encounter for closed fracture (Acute) Displaced intertrochanteric fracture of right femur, initial encounter for parish sed fracture (Acute 03/13/22) Fracture of medial malleolus of right tibia (Acute) S/P colonoscopy (Acute ~09/29/18) Encounter for screening colonoscopy (Acute) Medical History? Carpal tunnel syndrome Degenerative joint disease Hyperlipidemia Surgical History? H/O colonoscopy 05/07/16 - Dr Allen, normal, internal hemorrhoids, repeat 10 years S/P colonoscopy (~09/29/18) Social History/Home Situation: Lives alone in a private home with 2 steps to enter without rails. Independent with all aspects of ADLs prior to surgery. Daughter from [place] will be flying in in a few days to be with him to provide assistance as needed. . Equipment Owned/DME: Not sure if he still has the walker his used to have Subjective: Agreeable to PT consult. States that he can bring his bed from the second floor to the main floor so he is closer to the bathroom and kitchen for limited walking up to 30 feet each time. Reports 5/10 pain in the R LE with AD at rest, 7/10 with ambulation. Per Nurse Zamorano, patient did well with him pivoting from bed to wheelchair early this morning. 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 Objective: General Observation: Mental Status: Dressing to R hip surgery site. PAIGE wrap over surgical dressing on R leg. Alert and oriented as to person, place, time, and purpose. Able to pay attention, focus, and respond appropriately. Pain: Reports 5/10 pain in the R LE with AD at rest, 7/10 with ambulation Vital Signs: WNL as closely monitored by nursing staff ROM: Right Lower Extremity: Hip flexion only able to advance R LE at the hip about 10 degrees while walking. Hip abduction R LE at the hip about 10 degrees while walking. Knee flexion able to bending machine set up operator to 90 degrees on the chair and edge of bed . Ankle dorsiflexion able to do about 10 degrees. Ankle plantarflexion WFL. Left Lower Extremity: Hip flexion WFL. Hip abduction WFL. Knee flexion WFL. Ankle dorsiflexion WFL. Ankle plantarflexion WFL. Strength: Right Lower Extremity: Hip flexors 2-/5. Hip abductors 2-/5. Knee flexors 3-/5. Knee extensors 3-/5. Ankle dorsiflexors 4-/5. Ankle plantarflexors 4-/5. Left Lower Extremity: Hip flexors 5/5. Hip abductors 5/5. Knee flexors 5/5. Knee extensors 4/5. Ankle dorsiflexors 5/5. Ankle plantarflexors 5/5. Bed Mobility/Transfers: Sit to stand stand by assist Stand to sit stand by assist Bed to reclining chair stand by assist Gait: Instructed patient with level surface ambulation of 30 feet requiring contact guard assist. Patient was instructed to bear the least amount of weight up to half the weight of his body on the R side with FWW. Patient is much more comfortable with toes touching the floor first. Balance: Static Sitting: Normal Dynamic Sitting: Normal Static Standing: Fair Dynamic Standing: Fair Special Tests: Mobility Limitations Standardized Measure [facility] [place] AM-PAC 6 clicks Basic Mobility Inpatient Short Form: Raw Score: 17 CMS Score: 51% deficit Informed Consent/Education: Patient was instructed in purpose of PT consult and plan of care. Agreeable to proceed with established PT POC to achieve personal goals. Assessment: May need FWW for discahrge to home. Pre-medicate for pain for every PT session. Will require stairs training prior to discharge. Daughter will provide needed support with meals, grocery shopping, and chores. Patient presents with clinical signs and symptoms consistent with current/admitting diagnoses that have resulted to mobility limitations, gait instability, generalized weakness, and overall ADL decline as demonstrated by the following impairment level findings: 1. Decreased strength to R LE major muscle groups 2. Impaired sitting/standing balance 3. Impaired activity tolerance 4. Limitation of joint range of motion in R LE 5. Pain in R LE up to 7/10 with ambulation Impairments are contributing to the following functional limitations: 1. Decline in bed mobility skills 2. Decline in transfer skills 3. Difficulty with ambulation without assistive device and physical assistance 4. Increased completion time for mobility ADL performance 5. Increased risk for falls 6. Difficulty with managing steps alone safely Patient is assessed as a [id number] moderate complexity based on the following: History: 71-year-old male with past medical history as indicated above Examination: Demonstrable impairment in strength, balance, and mobility level with underlying impairments and functional limitations as exhibited above as well as deficit score of 51% utilizing the [facility] Mobility Inpatient Short Form Presentation: Evolving Decision Makin moderate complexity Goals: Goals X1 week 1. Supine-Sit independent 2. Sit-Supine independent 3. Sit-Stand independent 4. Stand-Sit independent with FWW 5. Bed-Chair independent with FWW 6. Chair-Bed independent with FWW 7. Independent gait on level surface with use of FWW for at least 50 feet without report of pain nor dyspnea 8. Independent stair negotiation while holding onto B rails for at least 5 steps without report of pain nor dyspnea 9. Good static and dynamic standing balance/tolerance Plan of Care/Treatment Plan: 1-2x/day, 7 days/week x 1 week. Plan of care has been reviewed with the CORRESPONDENCE ANALYST providing the service under Physical Therapy direction. Initiate Physical Therapy intervention for pain management as needed, strengthening, bed mobility, transfers, gait, stairs, balance training, and use of assistive device. DISCHARGE RECOMMENDATIONS: [] Home with no services [] [X] Home with services. Patient will benefit from home health PT services in order to progress mobility level using least restrictive assistive ambulatory device, assess home safety, identify additional equipment needs, and establish a functional maintenance program that will increase ability of patient to remain at home. [] Home with outpatient PT [] [] SNF for continued rehabilitation [] [] Skilled Nursing Care [] [] SNF versus LTC based on ability to participate and progress [] TREATMENT CODE/TIME: 48227 x 20 minutes, 24807 x 11 minutes beginning at 9:04 AM. Thank you for the opportunity to participate in the care of this patient. Fadia Kim PT, DPT, CLT [facility] [place], [place]
--- NOTE | 2022-03-15 09:30 | PGE_ITS ---
Date of Service Date of service: 03/15/22 Time of Service: 09:30 Assessment and Plan Assessment and plan (1) Displaced intertrochanteric fracture of right femur, initial encounter for closed fracture: Status: Acute Assessment and plan: POD 2 right Hip IMN for widely displaced subtrochanteric fracture Right lower extremity Partial weight bearing (up to 50%) Strict elevation right lower extremity for the next few days Physical therapy consulted continue pain management SCDs and MED hose left lower extremity Lovenox 40 mg daily while inpatient or at rehab facility and transition to aspirin 325 mg twice daily when able to mobilize and discharge home (ortho recommendations as higher risk for DVT with concomitant hip and leg fractures) Keep dressings in place and clean and dry until follow-up orthopedics directing care Follow-up outpatient with Dr. Carlson at [facility] orthopedics at 8:30AM on 04/03/22 (2) Displaced fracture of shaft of right tibia: Status: Acute Assessment and plan: POD 1 right tibia intramedullary nailing for displaced distal tib/fib shaft fractures Right lower extremity Partial weight bearing (up to 50%) Strict elevation right lower extremity for the next few days Physical therapy ordered see above (3) Hyperlipidemia: Status: Acute (4) DVT prophylaxis: Status: Acute Assessment and plan: Lovenox 40 mg daily while inpatient or at rehab facility and transition to aspirin 325 mg twice daily when able to mobilize and discharge home SCDs and MED hose left lower extremity (5) Discharge planning issues: Status: Acute Assessment and plan: case management following PT following and will give recommendations once re-ambulated, anticipate skilled rehabilitation. discussed with Dr Henderson Subjective Subjective Patient reports: no new complaints, feels better, tolerating liquids well and afebrile; denies shortness of breath Interval history since last seen: raygoza draining clear yellow. tolerating full liquids fine, passing flatus Exam Const General: cooperative, healthy appearing, comfortable and no acute distress Nutritional Appearance: thin Orientation: alert, awake and oriented x3 HENMT Head: normal to inspection, normocephalic and atraumatic Face and sinus: normal facial exam Mouth: oral mucosae normal Neck Neck: normal visual inspection, full ROM and nontender Chest Chest: normal inspection of the chest Resp Effort & Inspection: normal respiratory effort Auscultation: clear to auscultation bilaterally Cardio Rate: regular rate Rhythm: regular rhythm GI Inspection: normal to inspection Palpation: soft and nontender Skin General skin exam: no rashes or lesions noted and other (surgical wound not visualized, dressing intact, no surrounding erythema) Neuro General: patient alert, patient awake and patient oriented x3 Extrem Right lower extremity: ROM limited Objective Last Vital Signs Temp 36.9 C 03/15/22 07:18 Pulse 66 03/15/22 07:18 Resp 16 03/15/22 07:18 BP 154/70 H 03/15/22 07:18 Pulse Ox 97 03/15/22 07:18
[2022-03-15] MEDS: Enoxaparin 40 MG/0.4 ML SYR SC (09:59)
--- NOTE | 2022-03-15 10:04 | CMPROGNOTE_ITS ---
- If Service Date Differs Date of service: 03/15/22 Time of Service: 10:04 Care Management Progress Note S/O: Ambrocio continues to be monitored closely post surgically for recovery and pain management. He will be evaluated by PT for discharge recommendations. CM continues to follow. A: 71 year old male admitted to [facility] 03/13/22 for Traumatic R Hip Fracture, surgery 03/13, 03/14 hip and ankle respectively. P: Ambrocio continues to be monitored closely post surgically, PT following and will give recommendations once re-ambulated, anticipate skilled rehabilitation.
--- NOTE | 2022-03-15 12:42 | W.PM.PROGNOT ---
Date of Service Date of service: 03/15/22 Time of Service: 12:15 Assessment and Plan Assessment and plan (1) Displaced intertrochanteric fracture of right femur, initial encounter for closed fracture: Status: Acute Assessment and plan: 71-year-old male postop day #2 status post right Hip IMN for widely displaced subtrochanteric fracture; postop day #1 status post right tibia intramedullary nailing for displaced distal tib/fib shaft fxs Continue mobilize with assistance and physical therapy ordered. Right lower extremity Partial weight bearing (up to 50%) Strict elevation right lower extremity for the next few days while in bed or chair Pain controlled-continue multimodal as ordered SCDs and/or MED shakirae left lower extremity Chemo DVT prophylaxis for 30 days: Higher than usual risk due to concomitant hip and leg fractures. Lovenox 40 mg daily while inpatient or at rehab facility and probably reasonable to transition to Aspirin 325 mg twice daily when able to mobilize and discharge home Keep dressings in place and clean and dry until follow-up. Change leg dressings again if necessary due to drainage with 4 x 4 gauze, ABD if needed, and overwrapped with Wilfrid bandage. Discussed with primary medical team Call me directly if any questions or concerns Follow-up outpatient with Dr. Carlson at [facility] orthopedics at 8:30AM on 04/03/22 with plans for repeat hip and tib-fib x-rays at that time. Plan to advance to full weightbearing as tolerated after this office visit assuming patient is doing well and healing appropriately. (2) Displaced fracture of shaft of right tibia: Status: Acute Assessment and plan: as above Subjective Subjective Interval history since last seen: No complaints. Denies any significant pain. Denies any pain elsewhere in the body or other injuries. No numbness or tingling in the right lower extremity. Feels good about the amount of progress he was able to make ambulating today. Exam Narrative Exam Narrative: Alert, comfortable, and resting in chair Right hip dressings clean, dry, and intact Reported venous oozing on proximal leg dressing, which has been changed. New dressings are completely clean, dry, and intact. Early lateral and posterior thigh ecchymosis. Stable toe ecchymosis. Compartments soft thigh and leg. Sensation intact toes, webspace, and dorsal plantar foot without paresthesias. Tolerates passive stretch without difficulty. Demonstrates excellent early ability to perform straight leg raise and wiggle toes including EHL extension and ankle plantarflexion dorsiflexion. Limited below neutral ankle dorsiflexion probably due to combination of injury and ankle bulky dressing. No signs of infection or blood clot. Objective Last Vital Signs Temp 98.1 F 03/15/22 11:34 Pulse 67 03/15/22 11:34 Resp 16 03/15/22 11:34 BP 151/65 H 03/15/22 11:34 Pulse Ox 97 03/15/22 11:34
[2022-03-15] MEDS: oxyCODONE 5 MG TAB PO ×2 (12:57→19:13)
[2022-03-15] MEDS: Naproxen 500 MG TAB PO (12:57)
--- NOTE | 2022-03-15 14:23 | PT.INTREAT ---
Date of service: 03/15/22 Time of Service: 13:30 PT Notes Visit Reasons: Traumatic R Hip Fracture Inpatient Physical Therapy Treatment Note [facility] Date: 03/15/2022 PRECAUTIONS: Fall, activity as tolerated SUBJECTIVE: Ambrocio is pleasant and agreeable to participating in PT. He reports that he is experiencing some ankle pain today, but understands that discomfort is expected. OBJECTIVE: PAIN: See subjective. BED MOBILITY/TRANSFERS Sit-stand: SBA Stand-sit: SBA GAIT Assistive Device: FWW Weight bearing: PWB on R Assist: SBA Distance: 30' x2 + 10 x2 Deviation: Seated rest due to fatigue and mild SOB THEREX: Patient was instructed in a LE strengthening and stabilization program, completed in a long-sitting position, to include: ankle pumps, quad sets, glute sets, SLR, hip abduction and knee flexion. STAIRS: Up/down 3x4 and 2x6 using B rails and a hop/step-to pattern with SBA. Patient requires instruction in sequence for safety and pain management. ASSESSMENT: Patient tolerated session well with minimal c/o R ankle pain. He abides by weight bear restrictions without cueing, although does require rests with gait training due to fatigue and mild SOB. Provide skilled instruction in appropriate stair negotiation for safety and pain management, as well as exercises to promote LE strengthening and stabilization. PLAN: Continue with global strengthening and general conditioning for improved activity tolerance and mobility. TREATMENT CODE/TIME: 40 minutes; 18351 x2, 23422 (13:30)
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
[2022-03-15] MEDS: Docusate Sodium 100 MG CAP PO (19:13)
[2022-03-15] MEDS: Acetaminophen 500 MG TAB 1000 MG PO (21:24)
[2022-03-16 02:55] VITALS: BP 106/57; PULSE 69; RESP 14; TEMP 37; O2SAT 96
[2022-03-16] MEDS: Acetaminophen 500 MG TAB 1000 MG PO ×3 (05:20→21:25)
[2022-03-16 07:58] VITALS: BP 131/62; PULSE 74; RESP 14; TEMP 36.9; O2SAT 95
[2022-03-16] MEDS: Enoxaparin 40 MG/0.4 ML SYR SC (08:28)
[2022-03-16] MEDS: Cyanocobalamin 500 MCG TAB 1000 MCG PO (08:28)
[2022-03-16] MEDS: Calcium 600mg/Vit D 200U TAB 1 TAB PO ×2 (08:28→19:32)
[2022-03-16] MEDS: Normal Saline 500 ML 30 ML IV (08:29)
[2022-03-16] MEDS: IRON SUCROSE COMPLEX 300 MG in Normal Saline 250 ML 167 MG IVPB (08:29)
--- NOTE | 2022-03-16 09:11 | W.PM.PROGNOT ---
Date of Service Date of service: 03/16/22 Time of Service: 09:11 Assessment and Plan Assessment and plan (1) Displaced intertrochanteric fracture of right femur, initial encounter for closed fracture: Status: Acute Assessment and plan: POD 3 right Hip IMN for widely displaced subtrochanteric fracture Right lower extremity Partial weight bearing (up to 50%) Strict elevation right lower extremity for the next few days Physical therapy consulted continue pain management SCDs and MED hose left lower extremity Lovenox 40 mg daily while inpatient or at rehab facility and transition to aspirin 325 mg twice daily when able to mobilize and discharge home (ortho recommendations as higher risk for DVT with concomitant hip and leg fractures) Keep dressings in place and clean and dry until follow-up orthopedics directing care Follow-up outpatient with Dr. Carlson at [facility] orthopedics at 8:30AM on 04/03/22 (2) Displaced fracture of shaft of right tibia: Status: Acute Assessment and plan: POD 2 right tibia intramedullary nailing for displaced distal tib/fib shaft fractures Right lower extremity Partial weight bearing (up to 50%) Strict elevation right lower extremity for the next few days Physical therapy ordered see above (3) Hyperlipidemia: Status: Acute Assessment and plan: Continue home medication (4) DVT prophylaxis: Status: Acute Assessment and plan: Lovenox 40 mg daily while inpatient or at rehab facility and transition to aspirin 325 mg twice daily when able to mobilize and discharge home SCDs and MED hose left lower extremity (5) Discharge planning issues: Status: Acute Assessment and plan: case management following He states [facility] and doesn't know where he goes from here - I informed him care mgt will discuss options with him (I spoke w care mgt) PT following and will give recommendations once re-ambulated, anticipate skilled rehabilitation. discussed with Dr Henderson Subjective Subjective Patient reports: no new complaints and pain is less Interval history since last seen: States he is improving and is doing well with PT. Exam Const General: cooperative, healthy appearing, comfortable and no acute distress Nutritional Appearance: thin Orientation: alert, awake and oriented x3 HENMT Head: normal to inspection, normocephalic and atraumatic Face and sinus: normal facial exam Mouth: oral mucosae normal Neck Neck: normal visual inspection, full ROM and nontender Chest Chest: normal inspection of the chest Resp Effort & Inspection: normal respiratory effort Auscultation: clear to auscultation bilaterally Cardio Rate: regular rate Rhythm: regular rhythm GI Inspection: normal to inspection Palpation: soft and nontender Skin General skin exam: no rashes or lesions noted and other (surgical wound not visualized, dressing intact, no surrounding erythema) Neuro General: patient alert, patient awake and patient oriented x3 Extrem Right lower extremity: ROM limited Objective Last Vital Signs Temp 36.9 C 03/16/22 07:58 Pulse 74 03/16/22 07:58 Resp 14 03/16/22 07:58 BP 131/62 03/16/22 07:58 Pulse Ox 95 03/16/22 07:58 Reviewed Pertinent PMH: Yes
[2022-03-16] MEDS: Docusate Sodium 100 MG CAP PO (09:33)
[2022-03-16] MEDS: oxyCODONE 5 MG TAB PO ×3 (09:33→20:35)
--- NOTE | 2022-03-16 10:15 | PT.INTREAT ---
Date of service: 03/16/22 Time of Service: 09:48 PT Notes Visit Reasons: Traumatic R Hip Fracture Inpatient Physical Therapy Treatment Note [facility] Date: 03/16/2022 PRECAUTIONS: Fall, activity as tolerated SUBJECTIVE: Ambrocio is pleasant and agreeable to participating in PT. He reports that he is experiencing some ankle pain today, and that he is very cold today. He also reports that he is having a bad day and that he misses his . OBJECTIVE: PAIN: Patient reports increased pain in lateral aspect of R knee with ther ex BED MOBILITY/TRANSFERS Supine-sit: I with HOB flat sit-supine: I with HOB flat Sit-stand: S Stand-sit: S Chair-bed: SBA GAIT Assistive Device: FWW Weight bearing: PWB on R Assist: SBA Distance: 30' x2 Deviation: Seated rest due to fatigue and mild SOB THEREX: Patient was instructed in a LE strengthening and stabilization program, completed in both long-sitting and seated positions, to include: ankle pumps, quad sets, glute sets, LAQ, hip abduction and hip flexion. ASSESSMENT: Patient tolerated session well with some c/o R ankle and lateral knee pain. He abides by weight bear restrictions without cueing, although does require rests with gait training due to fatigue and mild SOB. Provide skilled instruction in exercises to promote LE strengthening and stabilization. PLAN: Continue with global strengthening and general conditioning for improved activity tolerance and mobility. TREATMENT CODE/TIME: 23 minutes; 83731, [id number] (09:48)
[2022-03-16 11:27] VITALS: BP 126/70; PULSE 74; RESP 12; TEMP 37.3; O2SAT 96
--- NOTE | 2022-03-16 13:17 | W.PM.PROGNOT ---
Date of Service Date of service: 03/16/22 Time of Service: 13:17 Assessment and Plan Assessment and plan (1) Displaced intertrochanteric fracture of right femur, initial encounter for closed fracture: Status: Acute (2) Displaced fracture of shaft of right tibia: Status: Acute Assessment and plan: Ambrocio is a 71-year-old who is status post intramedullary fixation of his right displaced femur fracture and his right tibia fracture. He is doing well. I did caution him on expecting to walk significantly. His goal right now is simply to get good transferring out of the bed to the bathroom and back to his bed again or chair. He can weight-bear as tolerated with assist but will take some time for is able to walk more normally, sometimes a few months. He does have notable swelling and some mild decrease sensation which I think is simply related to the swelling. I would encourage continue mobilization physical therapy discharge planning. Subjective Subjective Interval history since last seen: Ambrocio reports to be doing well. He was able to walk yesterday although this morning was a little harder. He reports some swelling and stiffness about the right leg but in general is doing well. He reports good pain control. Exam Narrative Exam Narrative: Resting comfortably in the chair. No acute distress. Alert and orient x3. Dressings of the right lower extremity are clean dry and intact. He tolerates internal and external rotation of the right hip without any significant increase in pain. There is notable swelling about the right thigh as well as the right leg. He does have some limitations with ankle dorsiflexion but great toe extension is intact. He reports some mild decrease numbness about the distal aspect of the dorsal foot but still reports some gross sensation to the deep and superficial peroneal nerves. Toes are warm and well-perfused. Objective Last Vital Signs Temp 37.3 C 03/16/22 11:27 Pulse 74 03/16/22 11:27 Resp 12 03/16/22 11:27 BP 126/70 03/16/22 11:27 Pulse Ox 96 03/16/22 11:27
[2022-03-16] MEDS: Milk of Magnesia 30 ML CUP PO (15:14)
[2022-03-16 15:38] VITALS: BP 145/66; PULSE 74; RESP 14; TEMP 36.6; O2SAT 96
[2022-03-16 19:17] VITALS: BP 129/62; PULSE 78; RESP 16; TEMP 36.8; O2SAT 97
[2022-03-16 22:36] VITALS: BP 133/62; PULSE 78; RESP 16; TEMP 37.3; O2SAT 93
[2022-03-17 02:33] VITALS: BP 144/66; PULSE 77; RESP 16; TEMP 36.9; O2SAT 95
[2022-03-17] MEDS: Acetaminophen 500 MG TAB 1000 MG PO ×3 (05:45→22:39)
[2022-03-17 05:56] LABS: Abs Immature Grans 0.11 10^3/uL (0.0-0.06); Absolute Basophil Count 0.06 10^3/uL (0.0-0.2); Absolute Eosinophil Count 0.43 10^3/uL (0.0-0.7); Absolute Lymphocyte Count 1.55 10^3/uL (1.2-3.4); Absolute Neutrophil Count 4.78 10^3/uL (1.2-6.7); Basophils % 0.8; Eosinophils % 5.6; HCT 24.8 % (40.0-50.0); Immature Grans % 1.4; Lymphocytes % 20.3; MCH 29.6 pg (27.0-33.0); MCHC 32.3 % (32.0-36.0); MCV 92 fL (80-95); MPV 9.7 fL (8.0-11.0); Monocytes % 9.2; Neutrophils % 62.7; Nucleated RBC 0.3 % (0.0-0.3); Platelet Count 170 10^3/uL (130-400); RDW 13.2 % (11.8-14.1); RDW-SD 43.4 fL; WBC 7.63 10^3/uL (4.4-10.8)
[2022-03-17 06:12] LABS: Anion Gap 7.2 mmol/L (3-11); BUN 13 mg/dL (7-18); CO2 29.8 mmol/L (21.0-32.0); CREATININE 0.8 mg/dL (0.70-1.30); Chloride 102 mmol/L (98-107); Glucose 87 mg/dL (74-106); Potassium 3.5 mmol/L (3.5-5.1); Sodium 139 mmol/L (136-145)
[2022-03-17 07:22] VITALS: BP 130/80; PULSE 83; RESP 18; TEMP 37.4; O2SAT 96
--- NOTE | 2022-03-17 08:38 | PGE_ITS ---
Date of Service Date of service: 03/17/22 Time of Service: 08:39 Assessment and Plan Assessment and plan (1) Displaced intertrochanteric fracture of right femur, initial encounter for closed fracture: Status: Acute Assessment and plan: POD 4 right Hip IMN for widely displaced subtrochanteric fracture Right lower extremity Partial weight bearing (up to 50%) Strict elevation right lower extremity for the next few days Physical therapy consulted continue pain management SCDs and MED hose left lower extremity Lovenox 40 mg daily while inpatient or at rehab facility and transition to aspirin 325 mg twice daily when able to mobilize and discharge home (ortho recommendations as higher risk for DVT with concomitant hip and leg fractures) Keep dressings in place and clean and dry until follow-up orthopedics directing care Follow-up outpatient with Dr. Carlson at [facility] orthopedics at 8:30AM on 04/03/22 (2) Displaced fracture of shaft of right tibia: Status: Acute Assessment and plan: POD 3 right tibia intramedullary nailing for displaced distal tib/fib shaft fractures Right lower extremity Partial weight bearing (up to 50%) Strict elevation right lower extremity for the next few days Physical therapy ordered see above (3) Anemia: Status: Chronic Assessment and plan: H/H 04/03 - Ferrous Sulfate 325 mg BID (4) Hyperlipidemia: Status: Acute Assessment and plan: Continue home medication (5) DVT prophylaxis: Status: Acute Assessment and plan: Lovenox 40 mg daily while inpatient or at rehab facility and transition to asp irin 325 mg twice daily when able to mobilize and discharge home SCDs and MED hose left lower extremity (6) Discharge planning issues: Status: Acute Assessment and plan: case management following He states [facility] and doesn't know where he goes from here - I informed him care mgt will discuss options with him (I spoke w care mgt) Being Friday we will find out more tomororw in terms of disposition PT following and will give recommendations once re-ambulated, anticipate skilled rehabilitation. discussed with Dr Henderson Subjective Subjective Patient reports: feels better, tolerating a regular diet and no bowel movement Interval history since last seen: C/O constipation - bowel meds ordered; protonix for gut protection Exam Const General: cooperative, healthy appearing, comfortable and no acute distress Nutritional Appearance: thin Orientation: alert, awake and oriented x3 HENMT Head: normal to inspection, normocephalic and atraumatic Face and sinus: normal facial exam Mouth: oral mucosae normal Neck Neck: normal visual inspection, full ROM and nontender Chest Chest: normal inspection of the chest Resp Effort & Inspection: normal respiratory effort Auscultation: clear to auscultation bilaterally Cardio Rate: regular rate Rhythm: regular rhythm GI Inspection: normal to inspection Palpation: soft and nontender Skin General skin exam: no rashes or lesions noted and other (surgical wound not visualized, dressing intact, no surrounding erythema) Neuro General: patient alert, patient awake and patient oriented x3 Extrem Right lower extremity: ROM limited Objective Last Vital Signs Temp 37.4 C 03/17/22 07:22 Pulse 83 03/17/22 07:22 Resp 18 03/17/22 07:22 BP 130/80 03/17/22 07:22 Pulse Ox 96 03/17/22 07:22 Laboratory Results - last 24 hr 03/17/22 03/17/22 05:36 05:36 WBC 7.63 RBC 2.70 L Hgb 8.0 L D Hct 24.8 L MCV 92 MCH 29.6 MCHC 32.3 RDW 13.2 Plt Count 170 MPV 9.7 Immature Gran % 1.4 Neutrophils % 62.7 Lymphocytes % 20.3 Monocytes % 9.2 Eosinophils % 5.6 Basophils % 0.8 Nucleated RBC % 0.3 Absolute Neutrophils 4.78 Absolute Lymphocytes 1.55 Absolute Monocytes 0.70 Absolute Eosinophils 0.43 Absolute Basophils 0.06 Sodium 139 Potassium 3.5 Chloride 102 Carbon Dioxide 29.8 Anion Gap 7.2 BUN 13 Creatinine 0.8 Estimated GFR/1.73 m2 >= 60.00 Glucose 87 Calcium 8.0 L Reviewed Pertinent PMH: Yes
[2022-03-17] MEDS: oxyCODONE 5 MG TAB PO ×3 (08:56→22:59)
[2022-03-17] MEDS: Calcium 600mg/Vit D 200U TAB 1 TAB PO ×2 (08:56→19:30)
[2022-03-17] MEDS: Cyanocobalamin 500 MCG TAB 1000 MCG PO (08:56)
[2022-03-17] MEDS: Enoxaparin 40 MG/0.4 ML SYR SC (08:56)
[2022-03-17] MEDS: Normal Saline Flush 10 ML SYR IVP ×2 (08:57→16:28)
[2022-03-17 11:35] VITALS: BP 127/61; PULSE 76; RESP 16; TEMP 37.1; O2SAT 98
--- NOTE | 2022-03-17 11:57 | PT.INTREAT ---
Date of service: 03/17/22 Time of Service: 10:18 PT Notes Visit Reasons: Traumatic R Hip Fracture Inpatient Physical Therapy Treatment Note [facility] Date: 03/17/2022 PRECAUTIONS: Fall, activity as tolerated, PWB R LE SUBJECTIVE: Ambrocio is pleasant and agreeable to participating in PT. He reports that he is feeling better today. He states that his daughter will be arriving from [place] to stay with him on Friday. OBJECTIVE: PAIN: Patient c/o occasional shooting pain from lower leg BED MOBILITY/TRANSFERS Sit-stand: SBA Stand-sit: SBA GAIT Assistive Device: FWW Weight bearing: PWB on R Assist: SBA Distance: 40' + 80' Deviation: Seated rest due to fatigue and mild SOB THEREX: Patient was instructed in a LE strengthening and stabilization program, completed in both long-sitting and seated positions, to include: ankle pumps, quad sets, glute sets, hip abduction, LAQ and hip flexion. STAIRS: Up/down 3x4 and 2x6 using B rails and a step-to pattern with supervision. Patient requires minimal cueing for sequence for safety and pain management. ASSESSMENT: Patient tolerated session well with minimal c/o pain. He abides by weight bear restrictions without cueing, although does require seated rest with gait training due to fatigue and mild SOB. Provide skilled instruction in appropriate stair negotiation for safety and pain management, as well as exercises to promote LE strengthening and stabilization. PLAN: Continue with global strengthening and general conditioning for improved activity tolerance and mobility. TREATMENT CODE/TIME: 35 minutes; 43368, [id number] (10:18)
[2022-03-17] MEDS: Milk of Magnesia 30 ML CUP PO (12:09)
[2022-03-17] MEDS: Docusate Sodium 100 MG CAP PO (12:10)
[2022-03-17] MEDS: Pantoprazole 40 MG TABCR PO (12:10)
[2022-03-17] MEDS: Bisacodyl 5 MG TABEC PO (12:10)
[2022-03-17] MEDS: Senna TAB 1 TAB PO (12:10)
[2022-03-17 15:38] VITALS: BP 153/74; PULSE 82; RESP 16; TEMP 36.4; O2SAT 96
[2022-03-17 19:10] VITALS: BP 150/68; RESP 16; TEMP 36.8; O2SAT 99
[2022-03-17] MEDS: Ferrous Sulfate 325 MG TAB PO (19:30)
[2022-03-17 23:10] VITALS: BP 168/83; PULSE 83; RESP 16; TEMP 36.7; O2SAT 100
[2022-03-18] VITALS (7 sets, daily range): BP systolic 122–154; BP diastolic 63–83; PULSE 73–81; RESP 16–18; TEMP 36.3–37; O2SAT 96–100
[2022-03-18] MEDS: Acetaminophen 500 MG TAB 1000 MG PO ×3 (05:56→21:02)
[2022-03-18] MEDS: Polyethylene Glycol 3350 17 GM PACKET PO (07:39)
[2022-03-18] MEDS: Enoxaparin 40 MG/0.4 ML SYR SC (07:39)
[2022-03-18] MEDS: Docusate Sodium 100 MG CAP PO ×2 (07:40→21:10)
[2022-03-18] MEDS: Senna TAB 1 TAB PO (07:40)
[2022-03-18] MEDS: Cyanocobalamin 500 MCG TAB 1000 MCG PO (07:40)
[2022-03-18] MEDS: Calcium 600mg/Vit D 200U TAB 1 TAB PO ×2 (07:40→19:42)
[2022-03-18] MEDS: Pantoprazole 40 MG TABCR PO (07:40)
[2022-03-18] MEDS: Ferrous Sulfate 325 MG TAB PO ×2 (07:40→19:42)
[2022-03-18] MEDS: Naproxen 500 MG TAB PO (09:45)
[2022-03-18 09:59] LABS: Abs Immature Grans 0.18 10^3/uL (0.0-0.06); Absolute Basophil Count 0.06 10^3/uL (0.0-0.2); Absolute Eosinophil Count 0.32 10^3/uL (0.0-0.7); Absolute Lymphocyte Count 1.52 10^3/uL (1.2-3.4); Absolute Monocyte Count 0.76 10^3/uL (0.1-0.8); Absolute Neutrophil Count 5.72 10^3/uL (1.2-6.7); Basophils % 0.7; Eosinophils % 3.7; HCT 26.6 % (40.0-50.0); HGB 8.6 g/dL (13.5-17.5); Immature Grans % 2.1; Lymphocytes % 17.8; MCH 29.7 pg (27.0-33.0); MCHC 32.3 % (32.0-36.0); MCV 92 fL (80-95); Monocytes % 8.9; Neutrophils % 66.8; Nucleated RBC 0.2 % (0.0-0.3); Platelet Count 228 10^3/uL (130-400); RDW 13.2 % (11.8-14.1); RDW-SD 43.7 fL; WBC 8.56 10^3/uL (4.4-10.8)
[2022-03-18 10:11] LABS: Anion Gap 5.6 mmol/L (3-11); BUN 11 mg/dL (7-18); CO2 31.4 mmol/L (21.0-32.0); CREATININE 0.8 mg/dL (0.70-1.30); Calcium 8.4 mg/dL (8.5-10.1); Chloride 99 mmol/L (98-107); Glucose 103 mg/dL (74-106); Potassium 3.8 mmol/L (3.5-5.1); Sodium 136 mmol/L (136-145)
--- NOTE | 2022-03-18 12:50 | PTTR_ITS ---
Date of service: 03/18/22 Time of Service: 09:50 PT Notes Visit Reasons: Traumatic R Hip Fracture Inpatient Physical Therapy Treatment Note [facility] Date: 03/18/2022 PRECAUTIONS: Fall, activity as tolerated, PWB R LE SUBJECTIVE: Ambrocio is pleasant and agreeable to participating in PT. He reports that he is feeling better today. He states that his daughter will be arriving from [place] to stay with him on Friday night. OBJECTIVE: Patient cleared for independent transfers and ambulation with FWW support within room at this time. PAIN: Patient c/o soreness in R hip BED MOBILITY/TRANSFERS Sit-stand: I Stand-sit: I GAIT Assistive Device: FWW Weight bearing: PWB on R Assist: SBA Distance: 150' in a.m.; 150' in p.m. Deviation: C/o B UE fatigue THEREX: Patient was instructed in a LE strengthening and stabilization program, completed in both long-sitting and seated positions, to include: Ankle pumps x20 in a.m.; x10 in p.m. Quad sets x20 in a.m.; x10 in p.m. Glute sets x20 in a.m.; x10 in p.m. Hip abduction 2x10 in a.m.; x10 in p.m. Heel sides 2x10 in a.m. LAQ 2x10 in a.m.; x10 in p.m. Hip flexion 2x10 in a.m.; x10 in p.m. Hip IR/ER x5 each in a.m. ASSESSMENT: Patient tolerated session well with minimal c/o pain. He abides by weight bear restrictions without cueing, although does require seated rest with gait training due to fatigue and mild SOB. Provide skilled instruction in appropriate stair negotiation for safety and pain management, as well as exercises to promote LE strengthening and stabilization. PLAN: Continue with global strengthening and general conditioning for improved activity tolerance and mobility. TREATMENT CODE/TIME: Session 1: 35 minutes; [id number], [id number] (09:55) Session 2: 18 minutes; [id number], [id number] (14:52)
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
--- NOTE | 2022-03-18 18:10 | W.PM.PROGNOT ---
Date of Service Date of service: 03/18/22 Time of Service: 10:00 Assessment and Plan Assessment and plan (1) Displaced intertrochanteric fracture of right femur, initial encounter for closed fracture: Status: Acute Assessment and plan: POD 5 right Hip IMN for widely displaced subtrochanteric fracture Right lower extremity Partial weight bearing (up to 50%) Strict elevation right lower extremity for the next few days Physical therapy consulted continue pain management SCDs and MED hose left lower extremity Lovenox 40 mg daily while inpatient or at rehab facility and transition to aspirin 325 mg twice daily when able to mobilize and discharge home (ortho recommendations as higher risk for DVT with concomitant hip and leg fractures) Keep dressings in place and clean and dry until follow-up orthopedics directing care Follow-up outpatient with Dr. Carlson at [facility] orthopedics at 8:30AM on 04/03/22 (2) Displaced fracture of shaft of right tibia: Status: Acute Assessment and plan: POD 4 right tibia intramedullary nailing for displaced distal tib/fib shaft fractures Right lower extremity Partial weight bearing (up to 50%) Strict elevation right lower extremity for the next few days Physical therapy ordered see above (3) Anemia: Status: Chronic Assessment and plan: H/H 04/03 - Ferrous Sulfate 325 mg BID (4) Hyperlipidemia: Status: Acute Assessment and plan: Continue home medication (5) DVT prophylaxis: Status: Acute Assessment and plan: Lovenox 40 mg daily while inpatient or at rehab facility and transition to aspirin 325 mg twice daily when able to mobilize and discharge home SCDs and MED hose left lower extremity (6) Discharge planning issues: Status: Acute Assessment and plan: case management following Refuses to go home today - he states there is no one at home, he acknowledges he may have to pay out of pocket for todays stay. He is willing to go home tomorrow, his daughter will be arriving tomorrow russell. PT following and will give recommendations once re-ambulated, anticipate skilled rehabilitation. discussed with Dr Henderson Subjective Subjective Patient reports: no new complaints, feels better, tolerating a regular diet and bowel movement; denies diarrhea, shortness of breath or fever Exam Const General: cooperative, healthy appearing, comfortable and no acute distress Nutritional Appearance: thin Orientation: alert, awake and oriented x3 HENMT Head: normal to inspection, normocephalic and atraumatic Face and sinus: normal facial exam Mouth: oral mucosae normal Neck Neck: normal visual inspection, full ROM and nontender Chest Chest: normal inspection of the chest Resp Effort & Inspection: normal respiratory effort Auscultation: clear to auscultation bilaterally Cardio Rate: regular rate Rhythm: regular rhythm GI Inspection: normal to inspection Palpation: soft and nontender Skin General skin exam: no rashes or lesions noted and other (surgical wound not visualized, dressing intact, no surrounding erythema) Neuro General: patient alert, patient awake and patient oriented x3 Extrem Right lower extremity: ROM limited Objective Last Vital Signs Temp 37 C 03/18/22 15:22 Pulse 73 03/18/22 15:22 Resp 18 03/18/22 15:22 BP 126/65 03/18/22 15:22 Pulse Ox 99 03/18/22 15:22 Laboratory Results - last 24 hr 03/18/22 03/18/22 09:51 09:51 WBC 8.56 RBC 2.90 L Hgb 8.6 L Hct 26.6 L MCV 92 MCH 29.7 MCHC 32.3 RDW 13.2 Plt Count 228 MPV 9.0 Immature Gran % 2.1 Neutrophils % 66.8 Lymphocytes % 17.8 Monocytes % 8.9 Eosinophils % 3.7 Basophils % 0.7 Nucleated RBC % 0.2 Absolute Neutrophils 5.72 Absolute Lymphocytes 1.52 Absolute Monocytes 0.76 Absolute Eosinophils 0.32 Absolute Basophils 0.06 Sodium 136 Potassium 3.8 Chloride 99 Carbon Dioxide 31.4 Anion Gap 5.6 BUN 11 Creatinine 0.8 Estimated GFR/1.73 m2 >= 60.00 Glucose 103 Calcium 8.4 L
[2022-03-18] MEDS: Normal Saline Flush 10 ML SYR IVP (21:03)
[2022-03-19 03:11] VITALS: BP 124/64; PULSE 76; RESP 18; TEMP 36.7; O2SAT 97
[2022-03-19] MEDS: Acetaminophen 500 MG TAB 1000 MG PO (06:15)
[2022-03-19 07:01] LABS: HCT 27.2 % (40.0-50.0); HGB 8.6 g/dL (13.5-17.5); MCH 29.5 pg (27.0-33.0); MCHC 31.6 % (32.0-36.0); MCV 93 fL (80-95); MPV 9.5 fL (8.0-11.0); Platelet Count 253 10^3/uL (130-400); RBC 2.92 10^6/uL (4.36-5.78); RDW 13.6 % (11.8-14.1); RDW-SD 43.8 fL; WBC 8.11 10^3/uL (4.4-10.8)
[2022-03-19 07:26] VITALS: BP 115/66; PULSE 71; RESP 16; TEMP 36.9; O2SAT 98
[2022-03-19] MEDS: Normal Saline Flush 10 ML SYR IVP (07:47)
[2022-03-19] MEDS: Enoxaparin 40 MG/0.4 ML SYR SC (07:48)
[2022-03-19] MEDS: Ferrous Sulfate 325 MG TAB PO (07:48)
[2022-03-19] MEDS: Cyanocobalamin 500 MCG TAB 1000 MCG PO (07:48)
[2022-03-19] MEDS: Calcium 600mg/Vit D 200U TAB 1 TAB PO (07:48)
[2022-03-19] MEDS: Pantoprazole 40 MG TABCR PO (07:48)
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
--- NOTE | 2022-03-19 10:35 | PDOC.HHF2F_ITS ---
Home Health Certification Home Health Certification: 1. Encounter Date and Reason I certify that Ambrocio Gong was seen by Sammie Jorge NP on 03/19/22 and that I had a [id number] encounter with this patient that meets the physician face to face encounter requirements. 2. Clinical Findings Supporting Skilled Need and Homebound Status I certify that home health services are medically necessary, include either intermittent long term and/or physical/speech therapy, and that this akosua ent is homebound in that absences from the home require considerable and taxing effort and are infrequent or of short duration, or are attributable to the need to receive medical care. [X] (a) Attached documentation from encounter provides clinical findings supporting skilled need and homebound status (including what assistance patient requires to leave the home). The encounter with the patient was in whole, or in part, for the following medical condition, which is the primary reason for home health care: ? Traumatic R Hip Fracture; Fracture of the shaft of the right tibia (Both surgically repaired) Physical Therapy:? Global strengthening and general conditioning for improved activity tolerance and mobility.? Progress mobility level using least restrictive assistive ambulatory device, assess home safety, identify additional equipment needs, and establish a functional maintenance program that will increase ability of patient to remain at home. MED shah until follow up with orthopedics 04/03/2022 @ [address] and clean and dry until follow-up.? Change leg dressings again if necessary due to drainage with 4 x 4 gauze, ABD if needed, and overwrapped with Wilfrid bandage. Homebound:? -??The clinical findings support that this patient is homebound in that absences from home require considerable and taxing effort, are infrequent or of short duration, or are attributable to the need to receive health care. 3. Certification and Authentication I certify that I composed the above information based on my clinical judgement relating to this patient's medical condition and, if applicable, clinical findings communicated to me by the NPP or inpatient physician who performed the Home Health Referral. All further orders will be obtained through Heidi Wells [Primary Care Provider]
--- NOTE | 2022-03-19 10:54 | CHAPLAIN ---
Ambrocio is happy to be being discharged today. His daughter in law who work in finances at [employer] [facility] will be taking him home and his daughter is traveling from [place] to be with him. Ambrocio has been here about a week, so he is relieved to be going home.
--- NOTE | 2022-03-19 12:25 | PDOC.CMDIS ---
- If Service Date Differs Date of service: 03/19/22 Time of Service: 12:25 LACE Index Scoring Tool - Questions: Length of Stay (in days): 4 - 6 Acuity (Admit via E.D.?): Yes E.D. Visits: 2 - Answers: Total Score: 9 Risk of Readmission: Low Risk Care Management Discharge Reason for Hospitalization: Traumatic R Hip Fracture Discharge Plan: Ambrocio will be discharged home with new home health services for PT. He will transport with family and follow up with his community providers including Orthopedic surgeon and PCP. Patient/Family Education Needs: Review discharge instructions, medications, activity, medications and discuss Ask Me Three. Services Needed at Discharge: Home Health Care Services, Physical Therapy
--- NOTE | 2022-03-19 15:37 | PT.INTREAT ---
Date of service: 03/19/22 Time of Service: 11:21 PT Notes Visit Reasons: Traumatic R Hip Fracture Inpatient Physical Therapy Treatment Note [facility] Date: 03/19/2022 PRECAUTIONS: Fall, activity as tolerated, PWB R LE SUBJECTIVE: Ambrocio is slightly nervous about discharging to home today, but feels that he has made good progress with PT. OBJECTIVE: Patient cleared for independent transfers and ambulation with FWW support within room at this time. THEREX: Patient was issued and instructed in a LE strengthening and stabilization HEP, to include: Ankle pumps x20 Quad sets x20 Glute sets x20 Hip abduction 2x10 Heel sides 2x10 LAQ 2x10 Hip flexion 2x10 ASSESSMENT: Patient demonstrates good knowledge and understanding of HEP. PLAN: Patient to discharge to home later today, per provider. Follow up with HH PT/OT. TREATMENT CODE/TIME: 10 minutes; 93977 (11:21)
--- NOTE | 2022-03-19 18:10 | PT.INDS ---
Date of service: 03/19/22 PT Notes Visit Reasons: Traumatic R Hip Fracture Physical Therapy Inpatient Discharge Summary Date: 03/19/2022 Dates of service 03/15/2022 to 03/19/2022 This is a clinical summary of care provided for the duration of dates listed above. No charge was made in the completion of this documentation. Referring Doctor:? rebel Carlson MD PT Orders: PT CONSULT: S/P Ortho surgery.? Partial weightbearing (up to 50%) RLE Precautions: Fall. Standard. May weight bear up to 50% partial weight bearing on the R LE with AD. Patient Profile/Admitting Diagnosis:? Ambrocio is a 71-year-old male who sustained a widely displaced subtrochanteric fracture on the right hip tatus post right intramedullary nailing on postoperative day 2.? He also sustained a highly comminuted segmental distal tibial fibular fracture on the L side and is status post right tibia intramedullary nailing on postoperative day 1. PMHX: All Active Problems?(Updated 03/13/22 @ 17:18 by Rama Lynch NP) Hyperlipidemia (Acute) Displaced intertrochanteric fracture of right femur, initial encounter for closed fracture (Acute) Displaced intertrochanteric fracture of right femur, initial encounter for closed fracture (Acute 03/13/22) Fracture of medial malleolus of right tibia (Acute) S/P colonoscopy (Acute ~09/29/18) Encounter for screening colonoscopy (Acute) Medical History? Carpal tunnel syndrome Degenerative joint disease Hyperlipidemia Surgical History? H/O colonoscopy 05/07/16 - Dr Allen, normal, internal hemorrhoids, repeat 10 years S/P colonoscopy (~09/29/18) Social History/Home Situation: Lives alone in a private home with 2 steps to enter without rails.? Independent with all aspects of ADLs prior to surgery.? Daughter from [place] will be flying in in a few days to be with him to provide assistance as needed.? . Equipment Owned/DME: Not sure if he still has the walker his used to have Subjective: NT. See most recent [employer]IST notes. Objective: General Observation: NT. See most recent [employer]IST notes. Mental Status: NT. See most recent [employer]IST notes. Pain: NT. See most recent [employer]IST notes. Vital Signs: NT. See most recent [employer] AUTHOR[employer]IST notes. ROM: Right Lower Extremity: Hip flexion only able to advance R LE at the hip about 10 degrees while walking. Hip abduction R LE at the hip about 10 degrees while walking.? 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 Ankle dorsiflexion able to do about 10 degrees. Ankle plantarflexion WFL. Left Lower Extremity: Hip flexion WFL.? Hip abduction WFL. Knee flexion WFL. Ankle dorsiflexion WFL. Ankle plantarflexion WFL. Strength: Right Lower Extremity: Hip flexors 2-/5. Hip abductors 2-/5. Knee flexors 3-/5. Knee extensors 3-/5. Ankle dorsiflexors 4-/5. Ankle plantarflexors 4-/5. Left Lower Extremity: Hip flexors 5/5. Hip abductors 5/5. Knee flexors 5/5. Knee extensors 4/5. Ankle dorsiflexors 5/5. Ankle plantarflexors 5/5. BED MOBILITY/TRANSFERS? Sit-stand: I ? Stand-sit: I ? GAIT? Assistive Device: FWW ? Weight bearing: PWB on R Assist: Independent? Distance: 150? Deviation: C/o B UE fatigue ? THEREX: Patient was instructed in a LE strengthening and stabilization program, completed in both long-sitting and seated positions, to include: Ankle pumps x20 Quad sets x20 Glute sets x20 Hip abduction 2x10 Heel sides 2x10 LAQ 2x10 Hip flexion 2x10 Hip IR/ER x5 Balance: Static Sitting: Normal Dynamic Sitting: Normal Static Standing: Fair Dynamic Standing: Fair Assessment: Patient demonstrates improvement in functional mobility during this episode of care at independent level using front wheeled walker. Goals: Goals X1 week 1. Supine-Sit independent MET 2. Sit-Supine independent MET 3. Sit-Stand independent MET 4. Stand-Sit independent with FWW MET 5. Bed-Chair independent with FWW MET 6. Chair-Bed independent with FWW MET 7. Independent gait on level surface with use of FWW for at least 50 feet without report of pain nor dyspnea MET 8. Independent stair negotiation while holding onto B rails for at least 5 steps without report of pain nor dyspnea MET 9. Good static and dynamic standing balance/tolerance MET DISCHARGE RECOMMENDATIONS: [] ? Home with no services [] [X] ? Home with services.? Patient will benefit from home health PT services in order to progress mobility level using least restrictive assistive ambulatory device, assess home safety, identify additional equipment needs, and establish a functional maintenance program that will increase ability of patient to remain at home. [] ? Home with outpatient PT [] [] ? SNF for continued rehabilitation [] [] ? [facility] [] [] ? SNF versus LTC based on ability to participate and progress [] TREATMENT CODE/TIME:? NC Thank you for the opportunity to participate in the care of this patient. Fadia Kim PT, DPT, CLT [facility] [place], [place]
== END 2022-03-19 12:11 | disposition home or self-care (01) | DRG 480 ==
LOC: ER 12:23 → MS 13:37
PROVIDERS: Internal Medicine; Nurse Practitioner Family; Student in an Organized Health Care Education/Training Program; Admitting Provider Internal Medicine; Emergency Provider Emergency Medicine; PCP Nurse Practitioner Primary Care; Visit Provider Internal Medicine
PROC: 0QS606Z Reposition Right Upper Femur with Intramedullary Internal Fixation Device, Open Approach (ICD-10-PCS; CPT 27245; principal; 2022-03-13 16:00)
PROC: 0QS606Z Reposition Right Upper Femur with Intramedullary Internal Fixation Device, Open Approach (ICD-10-PCS; CPT 27245; 2022-03-13 16:00)
PROC: 0QSG06Z Reposition Right Tibia with Intramedullary Internal Fixation Device, Open Approach (ICD-10-PCS; CPT 27759; principal; 2022-03-14 15:15)
DX: S82.391A Other fracture of lower end of right tibia, initial encounter for closed fracture (principal); S72.141A Displaced intertrochanteric fracture of right femur, initial encounter for closed fracture; S82.831A Other fracture of upper and lower end of right fibula, initial encounter for closed fracture; E78.5 Hyperlipidemia, unspecified; Y92.481 Parking lot as the place of occurrence of the external cause; Z87.891 Personal history of nicotine dependence; D64.9 Anemia, unspecified; E87.6 Hypokalemia; E83.42 Hypomagnesemia; V03.00XA Pedestrian on foot injured in collision with car, pick-up truck or van in nontraffic accident, initial encounter
CPT/HCPCS: 27245; 27752; 27759; 36415; 73552; 76942; 80048; 80053; 82306; 85027; 87635; 93005; 96361; 96365; 97110; 97162; 97530; 99285; J1650; 71045; 73501; 73502; 73590; 73610; 73700; 81003; 81015; 82607; 82728; 82746; 83540; 83550; 83735; 84484; 85025; 85610; 85730; 93010; 99222; 99232; 99238; J0131; J0690; J1100; J1756; J1885; J2250; J2270; J2370; J2405; J2704; J3010; J3480

== ENCOUNTER 2022-03-26 09:00 | Outpatient (CLI) | payer MEDICARE, OTHER, SELFPAY ==
--- NOTE | 2022-03-26 08:30 | DI.RAD_ITS ---
Exam(s) XR TIB/FIB RT EXAM: XR TIB/FIB RT CLINICAL HISTORY: tib/fib fx f/u. TECHNIQUE: 2D digital imaging was performed. COMPARISON: CR,XR XR TIB/FIB RT from 03/13/2022 XA XR TIB/FIB RT from 03/14/2022 FINDINGS: 3 views There is stable appearance of the distal tibial fracture site which underwent rodding what 03/14/2022 . Fracture fragments are unchanged in alignment from the intraoperative images performed that day. No evidence of hardware loosening nor radiographic evidence of osteomyelitis. Adjacent fracture in t he distal fibula also appears unchanged. No new fractures identified. IMPRESSION: DATA REPOSITORY: RADIATION DOSE DELIVERED:
--- NOTE | 2022-03-26 08:31 | DI.RAD_ITS ---
Exam(s) XR HIP RT AP LAT ONLY EXAM: XR HIP RT AP LAT ONLY CLINICAL HISTORY: fx f/u. TECHNIQUE: 2D digital imaging was performed. COMPARISON: CR XR HIP RT COMPLETE AP PELVIS from 03/13/2022 XA XR TIB/FIB RT from 03/14/2022 FINDINGS: Two views There is satisfactory alignment of the intertrochanteric fracture fragments which are supported by la g screw and intramedullary amber. No hardware loosening. No radiographic evidence of osteomyelitis. IMPRESSION: Satisfactory appearance DATA REPOSITORY: RADIATION DOSE DELIVERED:
== END 2022-03-26 09:01 | disposition home or self-care (01) ==
LOC: DIORS 09:01
PROVIDERS: PCP Nurse Practitioner Primary Care; Referring Provider Nurse Practitioner Primary Care; Visit Provider Student in an Organized Health Care Education/Training Program
DX: S82.201A Unspecified fracture of shaft of right tibia, initial encounter for closed fracture; S72.141A Displaced intertrochanteric fracture of right femur, initial encounter for closed fracture; X58.XXXA Exposure to other specified factors, initial encounter; Z47.89 Encounter for other orthopedic aftercare
CPT/HCPCS: 73502; 73590

== ENCOUNTER 2022-04-30 08:12 | Outpatient (CLI) | payer MEDICARE, OTHER, SELFPAY ==
--- NOTE | 2022-04-30 08:00 | DI.RAD_ITS ---
Exam(s) XR TIB/FIB RT EXAM: XR TIB/FIB RT CLINICAL HISTORY: femur fx f/u. TECHNIQUE: 2D digital imaging was performed. COMPARISON: CR XR TIB/FIB RT from 03/26/2022 FINDINGS: Two views-AP and lateral. Again noted is a long intramedullary amber in the tibia transfixing the comminuted fracture site in the distal half of the tibia. Appearance is unchanged from prior images of 03/26/2022. No radiographic evidence of osteomyelitis. IMPRESSION: DATA REPOSITORY: RADIATION DOSE DELIVERED:
--- NOTE | 2022-04-30 08:00 | DI.RAD_ITS ---
Exam(s) XR HIP RT AP LAT ONLY EXAM: XR HIP RT AP LAT ONLY CLINICAL HISTORY: femur fx f/u. TECHNIQUE: 2D digital imaging was performed. COMPARISON: CR XR HIP RT AP LAT ONLY from 03/26/2022 FINDINGS: 3 views Again noted is an intertrochanteric fracture supported by lag screw and intramedullary amber in the rig ht hip. Fracture line still evident. There appears to be slight widening of the fracture line when compared to 03/26/2022. However, there is no significant displacement. No obvious callus formation. Hip joint space is not narrowed. There does not appear to be hardware loosening and there is no ra diographic evidence of osteomyelitis. Remainder of the right hemipelvis appears unremarkable. IMPRESSION: There appears to be slight widening of the intertrochanteric fracture line, this when compared to the prior images of 03/26/2022 DATA REPOSITORY: RADIATION DOSE DELIVERED:
== END 2022-04-30 08:13 | disposition home or self-care (01) ==
LOC: DIORS 08:13
PROVIDERS: PCP Nurse Practitioner Primary Care; Referring Provider Nurse Practitioner Primary Care; Visit Provider Student in an Organized Health Care Education/Training Program
DX: S72.141D Displaced intertrochanteric fracture of right femur, subsequent encounter for closed fracture with routine healing; S82.201D Unspecified fracture of shaft of right tibia, subsequent encounter for closed fracture with routine healing; X58.XXXD Exposure to other specified factors, subsequent encounter
CPT/HCPCS: 73502; 73590

== ENCOUNTER 2022-06-18 08:47 | Outpatient (CLI) | payer MEDICARE, OTHER, SELFPAY ==
--- NOTE | 2022-06-18 08:00 | DI.RAD_ITS ---
Exam(s) XR HIP RT AP LAT ONLY EXAM: XR HIP RT AP LAT ONLY CLINICAL HISTORY: right hip f/u. TECHNIQUE: 2D digital imaging was performed of the right hip. Two images were obtained. AP pelvis a nd lateral right hip views were obtained. COMPARISON: CR XR HIP RT AP LAT ONLY from 04/30/2022 FINDINGS: BONES: There is again seen an intramedullary amber and screw transfixing the proximal femoral fracture. No change in alignment of the orthopedic hardware fracture components is seen. There has been some healing of the fracture noted. No new fracture is seen. No bony destructive lesion is seen. JOINTS: No dislocation present. SOFT TISSUE: Normal. IMPRESSION: Stable healing proximal right femoral fracture and orthopedic hardware. DATA REPOSITORY: RADIATION DOSE DELIVERED:
--- NOTE | 2022-06-18 08:00 | DI.RAD_ITS ---
Exam(s) XR TIB/FIB RT EXAM: XR TIB/FIB RT CLINICAL HISTORY: tibia f/u. TECHNIQUE: 2D digital imaging was performed of the right tibia and fibula. Two images were obtained. AP and lateral views were obtained. COMPARISON: CR XR TIB/FIB RT from 04/30/2022 FINDINGS: BONES: There is again seen an intramedullary amber transfixing the comminuted fracture of the distal ri ght tibia. No change in appearance of the orthopedic hardware or fracture components is seen. There is a healing distal fibular fracture. No new fractures identified. No bony destructive lesion is s een. Visualized portion of knee and ankle joints are unremarkable. SOFT TISSUE: Normal. IMPRESSION: Stable distal right tibial and fibular fractures and orthopedic hardware. DATA REPOSITORY: RADIATION DOSE DELIVERED:
== END 2022-06-18 08:48 | disposition home or self-care (01) ==
LOC: DIORS 08:47
PROVIDERS: PCP Nurse Practitioner Primary Care; Referring Provider Nurse Practitioner Primary Care; Visit Provider Student in an Organized Health Care Education/Training Program
DX: S82.201A Unspecified fracture of shaft of right tibia, initial encounter for closed fracture (principal); S72.141A Displaced intertrochanteric fracture of right femur, initial encounter for closed fracture
CPT/HCPCS: 99213; 73502; 73590

== ENCOUNTER 2022-08-20 08:21 | Outpatient (CLI) | payer MEDICARE, OTHER, SELFPAY ==
--- NOTE | 2022-08-20 08:00 | DI.RAD_ITS ---
Exam(s) XR HIP RT AP LAT ONLY EXAM: XR HIP RT AP LAT ONLY CLINICAL HISTORY: right hip fx f/u. TECHNIQUE: 2D digital imaging was performed. Two views were obtained. COMPARISON: CR XR HIP RT AP LAT ONLY from 06/18/2022 FINDINGS: BONES: There are stable post operative changes present. No new fracture or dislocation. There is no evidence of hardware failure. JOINTS: The joint spaces are well maintained. SOFT TISSUE: Normal. IMPRESSION: Stable postoperative changes. DATA REPOSITORY: RADIATION DOSE DELIVERED:
--- NOTE | 2022-08-20 08:00 | DI.RAD_ITS ---
Exam(s) XR ANKLE RT COMPLETE EXAM: XR ANKLE RT COMPLETE CLINICAL HISTORY: ankle fx f/u. TECHNIQUE: 2D digital imaging was performed of the right ankle. Three images were obtained. AP, la teral and oblique views were obtained. COMPARISON: CR,XR XR ANKLE RT COMPLETE from 03/13/2022 XA XR TIB/FIB RT from 03/14/2022 CR XR TIB/FIB RT from 06/18/2022 FINDINGS: BONES: There is again seen an intramedullary amber transfixing the distal tibial fracture. There has b een some continued healing of the fracture particularly noted laterally. Fracture lines are still vi sualized medially. No evidence of hardware failure is seen. There has been interval healing of the distal fibular fracture. No new fractures appreciated. The bones are osteopenic. JOINTS: The ankle mortise is normally aligned. SOFT TISSUE: Normal. IMPRESSION: Note is made of some interval healing of the distal right tibial and fibular fractures as described mason hayes. DATA REPOSITORY: RADIATION DOSE DELIVERED:
== END 2022-08-20 08:22 | disposition home or self-care (01) ==
LOC: DIORS 08:21
PROVIDERS: PCP Nurse Practitioner Primary Care; Referring Provider Nurse Practitioner Primary Care; Visit Provider Student in an Organized Health Care Education/Training Program
DX: S72.141D Displaced intertrochanteric fracture of right femur, subsequent encounter for closed fracture with routine healing (principal); S82.201D Unspecified fracture of shaft of right tibia, subsequent encounter for closed fracture with routine healing; X58.XXXD Exposure to other specified factors, subsequent encounter
CPT/HCPCS: 99213; 73502; 73610

== ENCOUNTER 2022-11-19 08:17 | Outpatient (CLI) | payer MEDICARE, OTHER, SELFPAY ==
--- NOTE | 2022-11-19 07:45 | DI.RAD_ITS ---
Exam(s) XR HIP RT AP LAT ONLY EXAM: XR HIP RT AP LAT ONLY CLINICAL HISTORY: f/u fx. TECHNIQUE: 2D digital imaging was performed. COMPARISON: CR XR HIP RT AP LAT ONLY from 08/20/2022 FINDINGS: Two views: Right hip appears stable. No hardware migration nor loosening. No radiographic evidence of osteomye litis. No hip joint space narrowing. Bone density remains normal. IMPRESSION: Satisfactory stable appearance. DATA REPOSITORY: RADIATION DOSE DELIVERED:
--- NOTE | 2022-11-19 07:57 | DI.RAD_ITS ---
Exam(s) XR ANKLE RT COMPLETE EXAM: XR ANKLE RT COMPLETE CLINICAL HISTORY: f/u fx. TECHNIQUE: 2D digital imaging was performed. COMPARISON: CR XR ANKLE RT COMPLETE from 08/20/2022 FINDINGS: Two views: Again noted is lower half of the long intramedullary amber in the tibia. This is transfixing the dista l fracture site which exhibits further healing. No hardware loosening nor radiographic evidence of o steomyelitis. Further callus formation noted. There as also been healing of the distal fibular frac ture site. There is no widening of the ankle mortise. Talar dome appears unremarkable. IMPRESSION: Satisfactory appearance. DATA REPOSITORY: RADIATION DOSE DELIVERED:
== END 2022-11-19 08:18 | disposition home or self-care (01) ==
LOC: DIORS 08:18
PROVIDERS: PCP Nurse Practitioner Primary Care; Referring Provider Nurse Practitioner Primary Care; Visit Provider Student in an Organized Health Care Education/Training Program
DX: S72.141D Displaced intertrochanteric fracture of right femur, subsequent encounter for closed fracture with routine healing (principal); S82.54XD Nondisplaced fracture of medial malleolus of right tibia, subsequent encounter for closed fracture with routine healing; X58.XXXD Exposure to other specified factors, subsequent encounter
CPT/HCPCS: 99213; 73502; 73610

== ENCOUNTER 2023-03-18 10:22 | Outpatient (CLI) | payer MEDICARE, OTHER, SELFPAY ==
--- NOTE | 2023-03-18 08:00 | DI.RAD_ITS ---
Exam(s) XR HIP RT AP LAT ONLY EXAM: XR HIP RT AP LAT ONLY CLINICAL HISTORY: hip f/u. TECHNIQUE: 2D digital imaging was performed of the right hip. Two images were obtained. AP pelvis a nd lateral right hip views were obtained. COMPARISON: CR XR HIP RT AP LAT ONLY from 04/30/2022 CR XR HIP RT AP LAT ONLY from 08/20/2022 CR XR HIP RT AP LAT ONLY from 11/19/2022 FINDINGS: BONES: There is again seen an intramedullary amber and nail transfixing the proximal right femoral frac ture. Orthopedic hardware appears stable. There is continued healing of the fracture. There is a p ortion of the fracture still visualized laterally. No new fracture is seen. No bony destructive les ion is seen. JOINTS: No dislocation present. SOFT TISSUE: Normal. IMPRESSION: Stable right femoral fracture. DATA REPOSITORY: RADIATION DOSE DELIVERED:
--- NOTE | 2023-03-18 08:00 | DI.RAD_ITS ---
Exam(s) XR ANKLE RT COMPLETE EXAM: XR ANKLE RT COMPLETE CLINICAL HISTORY: right ankle f/u. TECHNIQUE: 2D digital imaging was performed. Three images were obtained. AP, lateral and oblique vi ews were obtained. COMPARISON: CR XR ANKLE RT COMPLETE from 11/19/2022 FINDINGS: BONES: There are stable post operative changes present. No new fracture or dislocation. There has be en continued bridging of the fracture since the prior examination. JOINTS: The joint spaces are well maintained. SOFT TISSUE: Normal. IMPRESSION: Stable postoperative changes. Continued healing of the right distal tibial fracture. DATA REPOSITORY: RADIATION DOSE DELIVERED:
== END 2023-03-18 10:23 | disposition home or self-care (01) ==
LOC: DIORS 10:23
PROVIDERS: Visit Provider Student in an Organized Health Care Education/Training Program
DX: S82.54XD Nondisplaced fracture of medial malleolus of right tibia, subsequent encounter for closed fracture with routine healing (principal); S72.141D Displaced intertrochanteric fracture of right femur, subsequent encounter for closed fracture with routine healing; X58.XXXD Exposure to other specified factors, subsequent encounter
CPT/HCPCS: 99213; 73502; 73610